=== PATIENT | male | born 1960 | race Caucasian/White ===

== ENCOUNTER 2024-11-28 12:42 | Inpatient (IN) | payer OTHER, SELFPAY ==
[2024-11-28] VITALS (10 sets, daily range): BP systolic 117–149; BP diastolic 72–87; PULSE 65–73; BMI 24.9; BMI 24.4
[2024-11-28 08:33] LABS: Hematocrit 44.9 % (39.0-52.0); Hemoglobin 15.3 g/dL (13.0-18.0); Mean Corp Hgb Conc. 34.1 g/dL (33.0-37.0); Mean Corpuscular Volume 87.9 fL (80.0-94.0); Nucleated Red Blood Cells % 0 % (-); Platelet Count 278 10^3/uL (130-400); Red Cell Dist. Width 12.8 % (11.5-14.5)
--- NOTE | 2024-11-28 08:39 | ED.GENMED ---
History of Present Illness
General
Chief Complaint: Fainting/Passed Out
Time Seen by Provider: 11/28/24 08:39
History of Present Illness
History of Present Illness:
FOCUSED PAST MEDICAL HISTORY
- The patient is a smoker
REVIEW OF OLD RECORDS
- I reviewed records, the patient had a colonoscopy in 2021
Note:
CHIEF COMPLAINT(S)
Chest pain and syncope.
HISTORY OF PRESENT ILLNESS
The patient is a 64-year-old male with a history of chest pain and shortness of breath during the COVID pandemic, approximately five years ago, which was evaluated with a stress test revealing no cardiac abnormalities at that time. Recently, over
the past week and a half, the patient has experienced a resurgence of similar symptoms, notably chest tightness and occasional shortness of breath, though less frequent and less severe compared to five years ago.
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
attempts to rouse him. Upon arrival in the emergency department, initial evaluation including vital signs and an electrocardiogram did not indicate acute cardiac issues. The ER physician planned for cardiac biomarker testing, specifically a troponin
level approximately three hours post-symptom onset, to rule out any acute cardiac events.
The patient reports that physical exertion such as playing golf or climbing a hill does not worsen his symptoms, and he does not associate symptom onset with any specific dietary or activity triggers. He denies current symptoms of chest discomfort.
SOCIAL HISTORY
The patient has a history of smoking, which he resumed after 16 years of cessation. He reports smoking occasionally, primarily in social contexts or during vacations.
REVIEW OF SYSTEMS
- Cardiovascular: Chest tightness.
- Respiratory: Occasional shortness of breath.
- Neurological: Dizziness followed by loss of consciousness.
PHYSICAL EXAM
General: Alert, no acute distress. Athletic build, well appearing.
Skin: Warm, dry. The patient is heavily tattooed
Head: Normocephalic, atraumatic.
Neck: Supple, trachea midline.
Eye Ears, nose, mouth and throat: Oral mucosa moist.
Cardiovascular: Normal peripheral perfusion, No edema. No significant chest wall pain.
Respiratory: Respirations are non-labored. Breath sounds are clear and equal without evidence for COPD/emphysema�he is moving air well.
Gastrointestinal : Abdomen nondistended.
Back: Normal range of motion, Normal alignment.
Musculoskeletal: Normal range of motion, normal strength.
Neurological: Alert and oriented to person, place, time, and situation, No focal neurological deficit observed.
Psychiatric: Cooperative, appropriate mood & affect.
PLAN
- Obtain cardiac biomarkers, specifically troponin, at 10:00 AM.
- Monitor the patient�s vitals and symptoms until testing and results are complete.
- Discuss the case with cardiology for a possible follow-up appointment.
- Consider outpatient stress testing in the near future if cardiac workup is non-revealing.
DIFFERENTIAL DIAGNOSIS
The Differential Diagnosis includes, in no particular order and is not limited to:
1. Cardiac arrhythmia
2. Acute coronary syndrome
3. Aortic stenosis
4. Vasovagal syncope
5. Pulmonary embolism
6. Orthostatic hypotension
7. Gastroesophageal reflux disease
8. Costochondritis
9. Anxiety or panic disorder
10. Chronic obstructive pulmonary disease (COPD) exacerbation
EKG
- Sinus 71, normal axis, no acute ST abnormality, no old to compare
LABS
- CBC is normal, chemistry is unremarkable, troponin went from less than 0.012-0.025. A third troponin has been sent while patient still in the emergency department.
UPDATE
-SUMMARY OF ENCOUNTER
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 Initial cardiac evaluations, including vital signs and an electrocardiogram, did not indicate
acute cardiac issues. Cardiac biomarker testing was conducted to assess for possible cardiac events. An initial troponin level, drawn in the ambulance, was within the normal range but showed a slight upward trend upon further testing in the
emergency department. Although both values remained within the normal range, the upward trend in troponin levels raised concerns of potential cardiac issues.
DISPOSITION
Admit.
ASSESSMENT
The rising trend in troponin levels, despite remaining within the normal range, coupled with the recent syncope episode without an obvious trigger, necessitates further cardiac evaluation and observation.
MANAGEMENT OF THE PATIENTS CARE WAS DISCUSSED WITH
The internal medicine team was consulted to discuss inpatient management, and a patternmaker sample consultation is likely to occur.
PLAN
- Admit the patient for observation and further evaluation.
- Conduct another troponin test by quarter to one to monitor trends.
- Await internal medicine assessment and likely cardiology consultation for further management recommendations.
- Monitor for any changes in the patient�s symptoms or vital signs.
INDEPENDENT REVIEW OF LABS AND INTERPRETATION OF TESTS
My independent review of the troponin levels indicates that while the initial and subsequent levels are within normal range, there is a concerning upward trend.
MEDICAL DECISION MAKING
1. Number and Complexity of Problems Addressed:
Chronic conditions affecting care include the patients history of chest pain with previous normal stress tests, and his history of smoking. Differential diagnosis includes cardiac arrhythmia, acute coronary syndrome, aortic stenosis, vasovagal
syncope, pulmonary embolism, orthostatic hypotension, gastroesophageal reflux disease, costochondritis, anxiety or panic disorder, and chronic obstructive pulmonary disease (COPD) exacerbation.
2. Data:
- Category 1: The initial and subsequent troponin levels were reviewed, showing a concerning upward trend despite being within normal range.
- Category 3: Discussions have occurred with the internal medicine team regarding the upward trend in troponin levels and recent syncope episode, leading to the plan for admission and further evaluation.
3. Risk:
Escalation of care, including admission, was considered due to the complexity and risk of the patients presenting complaints, the upward trend in troponin levels, and recent syncope. Admission for observation and further evaluation is deemed
necessary.
DIAGNOSIS
Potential cardiac etiology for syncope, R94.31 (Abnormal results of cardiac function studies).
Phy Exam
Physical Exam
Physical Exam:
See HPI
Course
Orders/Labs/Results
Orders:
Orders
11/28/24 08:01
EKG [Electrocardiogram (*1)] Urgent
Reason for Study: Syncope
11/28/24 08:02
EKG- Treatment ONCE
11/28/24 08:20
Troponin I Urgent
11/28/24 08:21
Complete Blood Count/With Diff Urgent
Comprehensive Metabolic Panel Urgent
11/28/24 09:46
Troponin I Urgent
11/28/24 10:34
0.9% Sodium Chloride 1000 ml [Nss] 1,000 ml IV BOLUS
11/28/24 10:35
CR Chest - 2 Views Urgent
Comment:
Reason For Exam: cp syncope
11/28/24 12:15
D-Dimer Stat
11/28/24 12:17
Admit/Transfer Patient As Directed
Co-Sign Provider:
Level of Care: Inpatient admission
Assign to:: Telemetry
Physician / Group: Dr. Dacosta
Diagnosis: Chest pain
Reason for Telemetry: Chest Pain syndromes
Date to Stop Telemetry: 11/30/24
Time to Stop Telemetry: 11:00
Reason for Hospitalization: Elevated Troponin
Expected length of stay greater than two midnights?: Yes
ELOS- Estimated Length of Stay in days: 2
I certify the patient meets the requirements for IP care: Yes
11/28/24 12:18
PRN Pain Medication Management As Directed
May give lesser potent ordered pain med per pt: Yes
preference::
Protocol:: Medication orders for pain may be administered in a
manner that supports deferring to patient preference
when the pt is:
- Requesting an ordered lesser potent pain medication.
Least to most potent pain medications are defined
as: acetaminophen < NSAID < tramadol < opioids
(morphine, oxycodone, hydromorphone).
- Requesting a lesser dose of the same medication IF
ORDERED.
- Requesting a less intrusive route of administration
if both routes are prescribed by the provider (PO <
IV).
11/28/24 12:20
Code Status As Directed
Resuscitation Status: Full Code
11/28/24 12:45
Troponin I Urgent
11/30/24 11:00
DC Protocol for Telemetry ONCE
Abnormal Lab Results
11/28/24
08:21
Immature Gran % 0.7 H %
(0-0.5)
Creatinine 0.6 L mg/dL
(0.7-1.3)
Glucose 114 H mg/dl
(70-99)
11/28/24 08:21
11/28/24 08:21
Vital Signs
Initial and Last Documented VS:
Initial Vital Signs
Pulse Resp BP
72 25 124/73
11/28/24 08:01 11/28/24 08:01 11/28/24 08:01
Last Documented Vital Signs
Temp Pulse Resp BP Pulse Ox
36.5 C 64 18 138/85 98
11/28/24 08:03 11/28/24 12:30 11/28/24 12:30 11/28/24 12:00 11/28/24 12:30
*Pulse Oximetry
SaO2: 99
Oxygen Mode of Delivery: Room air
Patient hypoxic: no
*Critical Care Note
Total Time (30-74mins, 75-104mins- exclusive of procedures): Not Applicable
ED Attending Note
-
Portions of this chart may have been created with voice recognition software.� Occasional wrong word or��sound alike� substitutions may have occurred due to the inherent limitations of voice recognition software.
Discharge Plan
Departure
Patient Disposition: Admit
Date of Disposition: 11/28/24
Time of Disposition: 11:27
Presentation/result/management discussed w/ accepting MD/DO: Hospitalist
Discharge Problem:
Syncope and collapse
Interventions
Interventions:
*Risk Screen - Suicide Last Done: 11/28/24 08:08
*General Assessment Last Done: 11/28/24 08:08
*Neglect/Abuse Screening Last Done: 11/28/24 08:08
*ED- Fall Risk Assessment Last Done: 11/28/24 08:08
*ED COVID-19 Vaccine History Last Done: 11/28/24 08:08
ED- Cardiac Assessment Last Done: 11/28/24 08:35
ED- Neurological Assessment Last Done: 11/28/24 08:35
[2024-11-28 08:45] LABS: ALT (SGPT) 28 U/L (0-50); AST (SGOT) 32 U/L (17-59); Albumin 4.5 g/dl (3.5-5.0); Alkaline Phosphatase 91 U/L (38-126); Blood Urea Nitrogen 18 mg/dl (9-20); Calcium 9.5 mg/dl (8.4-10.2); Carbon Dioxide 27 mmol/L (22-30); Chloride 107 mmol/L (98-107); Estimated Creatinine Clearance > 125 ml/min; Glucose 114 mg/dl (70-99); Potassium 4.6 mmol/L (3.5-5.1); Sodium 138 mmol/L (135-145); Total Protein 6.5 g/dl (6.3-8.2); eGFR > 60.00
[2024-11-28 10:27] LABS: Troponin I 0.025 ng/ml
[2024-11-28] MEDS: NSS 1000 IV (10:53)
[2024-11-28 11:12] LABS: Troponin I < 0.012 ng/ml
--- NOTE | 2024-11-28 12:25 | HPS.HSE ---
Family Physician
-
Family Physician: * NONE
Chief Complaint
-
Syncope
History of Present Illness
64M w/no known PMH p/w syncope. 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
shortness of breath, and then he developed severe dizziness, and tunnel vision, and lost consciousness for less than a minute. His friend witnessed the event and shook him to arouse him. He did not have headache, or nausea. He notes that for the
last 1-1/2 weeks he has been having intermittent chest tightness, lasting less than 30 seconds but occurring multiple times throughout the day, both when awake at rest, and waking him up from sleep. These episodes are associated with some shortness
of breath. He denies fevers, chills, sore throat, runny nose, nausea, vomiting, change in appetite, or any sick contacts. He denies taking any medications or supplements. He did have minor dental surgery about 3 weeks ago. He notes that he drove
to [facility] recently. He smokes anywhere from 2 to 3 cigarettes/day to a pack per day. He notes he had similar symptoms 5 years ago and underwent workup with stress test and echo which were negative.
Medical History
Past Medical History
Past Medical History: Reports None
Past Surgical History: Reports Other
Additional Past Surgical History:
Galeano neuroma removal
Dental implant surgery
LASIK
Social History
Tobacco: Smoker (Up to 1 PPD)
Alcohol: Daily (1 to 2 cocktails per day)
Drug: None and Former User
Personal:
Living: With Family
Family History
Family History: Other (Mother with stroke in 70s)
Allergies / Home Medications
Allergies reflects when Allergies were last updated in [facility].
Home Medications with original date entered in [facility]
Allergy/Medication List:
Allergies
Allergy/AdvReac Type Severity Reaction Status Date / Time
No Known Allergies Allergy Unverified 11/28/24 08:18
Home Medications
ibuprofen 200 mg capsule 600 mg PO DAILYPRN PRN mild pain 11/28/24
Review of Systems
-
History Source: Patient
A 12 point ROS was completed and negative except as noted: Yes
Physical Exam
Vital Signs
Vital Signs
Temp Pulse Resp BP Pulse Ox
97.7 F 75 21 136/86 98
11/28/24 08:03 11/28/24 12:08 11/28/24 10:30 11/28/24 10:00 11/28/24 10:30
Physical Exam
General: No Apparent Distress
HEENT: Moist mucous membranes, PERRLA and Neck Nontender; No Neck Mass
Respiratory: Clear; No Wheezes, Rales or Rhonchi
Cardiac: S1/S2 and Regular Rhythm; No Murmur, Rub or Gallop
GI: Soft, Non Tender, Non Distended and Normal Bowel Sounds
Musculoskeletal: No No Edema
Skin: Warm and Dry; No Rash, Ulcers or Lesions
Neuro: Awake and AO x 3
Hematologic/Lymphatic: No Lymphadenopathy
Psych: Calm
Laboratory Results
-
11/28/24 08:21
11/28/24 08:21
Laboratory Results
Total Bilirubin 0.7 mg/dl (0.2-1.3) 11/28/24 08:21
AST 32 U/L (17-59) 11/28/24 08:21
ALT 28 U/L (0-50) 11/28/24 08:21
Alkaline Phosphatase 91 U/L (38-126) 11/28/24 08:21
Troponin I 0.025 ng/ml D 11/28/24 09:46
Data Reviewed
-
Diagnostic Radiology: Report Reviewed by me
Lab Data: Labs Reviewed by me, Discussed with Physician, Discussed with Nurse and Discussed with Patient
Impression/Plan
-
IMPRESSION:
64M with tobacco use presents with chest pain and syncope.
PLAN:
Syncope:
Concern for cardiogenic source given prodromal chest pain and dizziness.
Check orthostatic BP
neon glass blower
Chest pain workup as below
Check TSH
Check D-dimer (patient recently had a road trip)
Chest pain:
Chest pain sounds atypical, as it is not occurring with exertion but also at rest, intermittent episodes for the last week and a half. Also had similar symptoms 5 years ago with negative testing.
CXR is WNL
No S/S of infection
Troponin increased from 0.012-0.025, will check repeat troponin as per chest pain protocol
neon glass blower
Given severity of symptoms and the fact the patient had LOC, admitted for workup and cardiology consult. Dr. Hassan aware. Will defer to cardiology for additional testing.
SL nitro as needed
Check lipid panel and A1c
Tobacco use:
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
DVT PPx:
Lovenox
Full code
--- NOTE | 2024-11-28 12:36 | CON.CAR ---
Addendum entered and electronically signed by Chano Hassan MD 11/28/24 14:32:
I saw and examined the patient.
The SURVEILLANCE MANAGER's note was reviewed and I agree with the note.
64 yr old male presents with an episode of syncope/LOC. Patient has no prior cardiac history he had some intermittent chest pain and shortness of breath about 4- 5 years ago with that evaluation in [place] that was reportedly unremarkable more
recently has had some similar symptoms over the past week random episodes of chest tightness that lasted less than a minute sometimes also feels a little short of breath with it. No exertional symptoms he is able to play golf and walk the golf
course at 5 pounds with no exertional symptoms this includes walking up hills. Today he was in his usual state of health he did have some brief chest tightness this morning. 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 While he was standing
he had some brief dizziness that lasted for about 10 seconds he was able to remain standing and symptoms resolved. He then walked over to one of the golf carts and then apparently slumped over in the seat. No trauma. A coworker saw him and tried
to wake him up and eventually he regained consciousness. He said he was oriented shortly after and had no recurrent symptoms. He was evaluated in the ER. ECG shows sinus rhythm with no acute changes. Initial troponin was normal there was minimal
elevation in the second troponin to 0.025. D-dimer was negative. Exact cause of syncope unclear
- Admit for further evaluation
- Telemetry
- Echocardiogram
- Follow serial troponins
- patient will need an additonal evaluation for CAD.Plan for invasive vs non invasive evaluation based on clinical course andhte results of the diagnostic tests above
- smoking cessation
-lipid profile
Original Note:
Consultation
Consultation Request
Date/Time Consultation Requested: 11/28/24 1178
Date/Time Consultation Performed: 11/28/24 1235
Requesting Provider: Dr. Yañez
Performing Provider: Cinthya ADRIAN for Dr. Hassan
Reason for Consultation: syncope, chest discomfort
Medical History
-
Chief Complaint: syncope
History of Present Illness:
64 y/o male with current smoking and daily ETOH who is here for syncope. Briefly, over the past 1.5 weeks, he has had intermittent chest tightness and shortness of breath. It will last about 1 minute and happens multiple times throughout the day. It
does not seem to correlate with anything including exertion or eating. About 5 years ago, he had similar symptoms, but had a cardiac work-up and it was ultimately felt to be related to panic attacks. It resolved. 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 The dizziness passed, but he still had the chest tightness. He went to go walk over
to a golf cart and sat down and felt dizzy again, then slumped over to the side and was disoriented when other staff were trying to awaken him. He ate and drank as usual this AM. Yesterday, he walked up a hill without CP or SOB. He is in no distress
at the time of my assessment.
Past Medical History
Past Medical History: None
Social History
Tobacco: Smoker (2 cigarettes to a pack per day depending on the day)
Alcohol: Daily (2 drinks per day - bourbon, vodka)
Drug: None
Personal:
Living: With Family
Employment: Employed
Family History
Family History: Unable to Obtain (patient does not know)
Allergies / Home Medications
Allergy/AdvReac Type Severity Reaction Status Date / Time
No Known Allergies Allergy Unverified 11/28/24 08:18
�Medication �Instructions �Recorded �Confirmed �Type
ibuprofen 200 mg capsule 600 mg PO DAILYPRN PRN mild pain 11/28/24 11/28/24 History
Review of Systems
-
History Source: Patient
All other systems: Negative unless noted
Respiratory: Trouble Breathing
Cardiac: Chest Pain and Syncope
Neurological: Dizzy
Physical Exam
Vital Signs
Temp Pulse Resp BP Pulse Ox
97.7 F 75 21 136/86 98
11/28/24 08:03 11/28/24 12:08 11/28/24 10:30 11/28/24 10:00 11/28/24 10:30
Lab Results
11/28/24 08:21
11/28/24 08:21
Troponin I 0.025 ng/ml D 11/28/24 09:46
Physical Exam
General: Well Developed, Well Nourished and No Apparent Distress
HEENT: Normocephalic and Anicteric
Respiratory: Clear and Non Labored Respirations
Cardiac: Regular Rhythm
Musculoskeletal: No Edema
Skin: Warm and Dry
Neuro: AO x 3
Psych: Calm
Impression / Plan
-
Syncope:
-etiology unclear
-obtain echo, follow telemetry
-check orthos
CP/SOB:
-etiology unclear
-follow trops and EKG's
-obtain echo
-depending on echo and trops, consider stress testing in AM
Smoking:
-education on cessation prior to d/c
Data Reviewed
-
EKG: Tracing Personally Visualized and interpreted (NSR)
Radiology: Report Reviewed by me (CXR: No acute cardiopulmonary process.)
Medical Tests (Nuc Med, Echo etc): Other (echo ordered)
Labs: Labs Reviewed by me
--- NOTE | 2024-11-28 13:03 | CM ---
CM reviewed chart and met with pt bedside in ED. Pt lives with his , 2 story home, ramp and 1 [address] front door, first floor half bath, full flight to second floor bedroom and full bath.
Independent in ADLs, personal care and ambulation at baseline, no assistive devices.
Confirms prescription coverage.
No hx VN or SNF
PCP: [facility], unsure which doctor he saw last.
Pharmacy: [facility]
CM will continue to follow for any discharge planning needs.
[2024-11-28 13:16] LABS: D-Dimer < 0.27 ug/mlFEU (0.00-0.50)
[2024-11-28 13:24] LABS: Troponin I 0.039 ng/ml
[2024-11-28 14:39] LABS: Troponin I 0.037 ng/ml
[2024-11-28 17:53] LABS: Troponin I 0.026 ng/ml
[2024-11-28] MEDS: LOVENOX 40 MG SC (18:02)
[2024-11-28 21:10] LABS: Troponin I 0.019 ng/ml
[2024-11-29] VITALS (11 sets, daily range): BP systolic 118–148; BP diastolic 65–90; PULSE 66–76
[2024-11-29 07:35] LABS: Hematocrit 44.0 % (39.0-52.0); Hemoglobin 15.0 g/dL (13.0-18.0); Mean Corp Hgb Conc. 34.1 g/dL (33.0-37.0); Mean Corpuscular Volume 88.9 fL (80.0-94.0); Platelet Count 254 10^3/uL (130-400); Red Cell Dist. Width 12.6 % (11.5-14.5)
[2024-11-29 07:58] LABS: Blood Urea Nitrogen 15 mg/dl (9-20); Calcium 9.3 mg/dl (8.4-10.2); Carbon Dioxide 26 mmol/L (22-30); Chloride 107 mmol/L (98-107); Estimated Creatinine Clearance 117 ml/min; Glucose 92 mg/dl (70-99); HDL Cholesterol 78 mg/dl; LDL Cholesterol, Calculated 62 mg/dl; Potassium 5.2 mmol/L (3.5-5.1); Sodium 137 mmol/L (135-145); Very Low Density Lipoprotein 16 mg/dl (0-30); eGFR > 60.00
--- NOTE | 2024-11-29 08:27 | W.PN.UPDATE ---
Update Note
Progress Note Update
EP Consult dictated
Unexplained syncope in the setting of anginal quality chest pain and abnormal troponin
Troponin elevation is in a pattern consistent with CO. Etiology of troponin elevation is uncertain
Recurrent anginal quality chest pain (30sec-1/2 min) at rest or with activity, multiple episoded starting recently, consider coronary spasm or ACS
Normal tele, ekg, echo
Smoker
No prior syncope ever
DDx
- ACS with syncope from ischemic mediated arrhythmia
- Spasm with syncope from ischemic mediated arrhythmia
- CP of unknown cause with syncope from a vasovagal response
Suggest
- I do not feel a stress test will adequately risk stratify him
- Cardiac cath with possible PCI and revascularization as indicated
- If cath negative then home with amlodipine and arrange for 30 day monitor
- Pt told not to drive an automobile until cleared
- Smoking cessation advised
- I suggest he decrease ETOH significantly
Thank you for the consult
[2024-11-29 08:29] LABS: TSH 2.85 uIU/ml (0.47-4.68)
[2024-11-29] MEDS: ASPIRIN 325 MG PO (08:32)
[2024-11-29 11:50] LABS: Glycohemoglobin (HgbA1c) 5.5 % (4.0-5.6)
--- NOTE | 2024-11-29 13:02 | CM ---
Patient for possible cardiac cath today.
Plan; Home when stable, no needs.
--- NOTE | 2024-11-29 14:28 | W.PN.HOSP.TC ---
Today's Communication/Plan
-
[facility] today
Assessment / Plan
Assessment / Plan
64M with tobacco use presents with chest pain and syncope.
Syncope/Chest pain:
Concern for cardiogenic source given prodromal chest pain and dizziness.
Chest pain sounds atypical, as it is not occurring with exertion but also at rest, intermittent episodes for the last week and a half. Also had similar symptoms 5 years ago with negative testing.
CXR is WNL
No S/S of infection
Troponin peaked at 0.039
electronic device monitor
SL nitro as needed
TSH wnl
negative D-dimer
lipid panel and A1c are WNL
Echo is WNL
Cardiology consulted and plan for [facility] today, see notes.
Tobacco use:
Counseled to quit
DVT PPx:
Lovenox
Anticipated Discharge: 24 - 48 hours
Subjective/Interval History
-
Date of Service: November 29, 2024
Patient notes he had a few episodes of chest tightness, namely overnight at 9 PM. This morning he had no active chest pain.
Objective Data
-
Labs:
Laboratory Results
11/29/24
06:42
WBC 7.1
Hgb 15.0
Hct 44.0
Plt Count 254
Sodium 137
Potassium 5.2 H
Chloride 107
Carbon Dioxide 26
BUN 15
Creatinine 0.7
Glucose 92
Calcium 9.3
Vital Signs:
Vital Signs
Temp Pulse Resp BP Pulse Ox
98.5 F 64 16 142/74 96
11/29/24 11:24 11/29/24 11:24 11/29/24 11:24 11/29/24 11:24 11/29/24 11:24
Review of Systems
-
All other systems: Reviewed and negative
Physical Exam
-
General: No Apparent Distress
HEENT: Moist Mucous Membranes, Anicteric and PERRLA
Respiratory: Clear to Auscultation; Negative Wheezes, Rales or Rhonchi
Cardiac: Regular Rhythm and S1/S2; Negative Murmur, Rub or Gallop
GI: Soft, Nontender, Nondistended and Normal Bowel Sounds
Musculoskeletal: No Edema
Skin: Warm and Dry; Negative Rash, Ulcers or Lesions
Neuro: Awake and AO x 3
Hematologic / Lymphatic: No Lymphadenopathy
Psych: Calm
Data Reviewed
-
Medical Tests (Nuc Med, Echo etc): Report Reviewed by me and Discussed with Physician
Labs: Labs Reviewed by me, Discussed with Physician and Discussed with Patient
[2024-11-29] MEDS: LOVENOX 40 MG SC (17:02)
--- NOTE | 2024-11-29 20:00 | ITS.CL.PN ---
Cardiac Nurse - Procedure Note
Procedure
Procedure Note:
CARDIAC CATHETERIZATION REPORT
Date of Procedure: 11/29/2024
Referring: Dr. William Coronado MD
Indication: mildly elevated troponin, concern for VT/ischemia mediated syncope
PROCEDURE(S)
1. left heart catheterization
2. coronary angiography
ACCESS: 6F right radial artery (closure: radial band)
CATHETERS
1. 6F JR4
2. 6F JL3.5
MODERATE SEDATION: 25 minutes of moderate sedation was utilized. An independent medical physics professor was present to assist with and help manage the patient's level of consciousness and physiologic status.
HEMODYNAMIC DATA
LV 157/11 (EDP 20) mmHg
AO 145/84 (mean 111) mmHg
CORONARY ANGIOGRAPHY
Dominance: right
LM: large, normal
LAD: large vessel giving rise to a small D1 and small D2 before becoming a diminutive vessel at the apex. There are mild luminal irregularities only.
LCx: Large vessel giving rise to a moderate caliber OM1, several small OM branches, a moderate caliber LPL 1, and small LPL 2. There are trivial luminal irregularities only.
RCA: moderate caliber vessel giving rise to a small RPDA and several small RPL branches. There is a smooth 40% stenosis in the proximal vessel and otherwise mild luminal irregularities only.
RADIATION: dose 192 mGy; DAP 15 Gy*cm2; fluoroscopy time 2.3 min
CONCLUSIONS
1. mildly elevated LV filling pressure and no aortic stenosis
2. nonobstructive coronary artery disease and right dominant system
RECOMMENDATIONS
1. primary prevention of CAD
2. workup for etiology of syncope not related to obstructive coronary artery disease
Copy to: Dr. William Coronado MD (school bus driver/teacher assistant); Dr. Alejandro Vivar MD (PCP)
Signed: Darin Floyd MD, PhD
[2024-11-30] VITALS: BP 120/59
[2024-11-30 02:30] VITALS: BP 124/72
--- NOTE | 2024-11-30 03:45 | DOWNTIME ---
There was a mYwindow [employer] Downtime on 11/30/2024 from 0100 to 11/30/2024 at 0215. Downtime documentation of patient's care, including medication administrations, has been reconciled in the electronic record per guidelines. Refer to the
patient's paper chart under the miscellaneous tab to see printed paper medication records and downtime forms.
[2024-11-30 07:50] VITALS: BP 124/84
[2024-11-30 08:22] LABS: Hematocrit 44.0 % (39.0-52.0); Hemoglobin 15.1 g/dL (13.0-18.0); Mean Corp Hgb Conc. 34.3 g/dL (33.0-37.0); Mean Corpuscular Volume 87.6 fL (80.0-94.0); Platelet Count 255 10^3/uL (130-400); Red Cell Dist. Width 12.7 % (11.5-14.5)
--- NOTE | 2024-11-30 08:56 | W.PN.CD ---
Today's Communication / Plan
-
Add ASA/statin/amlodipine
30 day monitor
Smoking cessation
No driving
F/u Dr. Hassan in our office 01/26/2025 at 2:20
Impression / Plan
-
Syncope:
-etiology unclear
- Will arrange 30 day event recorder
CP/SOB:
Etiology uncertain
- Will try treating for vasospasm, empiric, not confrimed
Mild CAD
- Add ASA and statin
- Goal LDL < 55
Smoking:
-education on cessation prior to d/c
Physical Exam
Vital Signs/Labs
Vital Signs
Temp Pulse Resp BP Pulse Ox
98.6 F 65 16 124/84 96
11/30/24 07:50 11/30/24 07:50 11/30/24 07:50 11/30/24 07:50 11/30/24 07:50
11/29/24 11/30/24 12/01/24
06:59 06:59 06:59
Actual Weight 79.379 kg
11/30/24 08:05
Triglycerides 84 mg/dl (10-149) 11/29/24 06:42
LDL Cholesterol, Calc 62 mg/dl 11/29/24 06:42
VLDL Cholesterol, Calc 16 mg/dl (0-30) 11/29/24 06:42
HDL Cholesterol 78 mg/dl 11/29/24 06:42
TSH 2.85 uIU/ml (0.47-4.68) 11/29/24 06:42
LAB Results
11/28/24 11/28/24 11/28/24
08:20 09:46 12:45
Troponin I < 0.012 0.025 D 0.039 H* D
11/28/24 11/28/24 11/28/24
14:06 17:18 20:30
Troponin I 0.037 H* 0.026 D 0.019 D
Physical Exam
Constitutional: No acute distress
EENT: Anicteric
Cardiovascular: Rhythm & rate is regular and Pedal edema is absent
Respiratory: Respiratory effort normal and Lungs clear to auscul.
GI: Soft and Distention absent
Neuro/Psych: AO x 3
Data Reviewed
-
Date of Service: November 30, 2024
[2024-11-30 09:05] LABS: Blood Urea Nitrogen 19 mg/dl (9-20); Calcium 9.2 mg/dl (8.4-10.2); Carbon Dioxide 26 mmol/L (22-30); Chloride 105 mmol/L (98-107); Estimated Creatinine Clearance 117 ml/min; Glucose 100 mg/dl (70-99); Potassium 4.8 mmol/L (3.5-5.1); Sodium 137 mmol/L (135-145); eGFR > 60.00
[2024-11-30] MEDS: LOW STRENGTH ASPIRIN 81 MG PO (09:43)
[2024-11-30] MEDS: NORVASC 2.5 MG PO (09:43)
--- NOTE | 2024-11-30 10:55 | W.DCSUMMARY ---
Discharge Summary
Discharge Data
Date of Admission: 11/28/24
Date of Discharge: 11/30/24
Total time spent discharging patient (in min): 35
-
Pending Results: No
Hospital Course
Attending physician on day of discharge:
Carolina Dacosta MD
Diagnosis:
Syncope, chest pain
Consultations:
Cardiology
Electrophysiology
Procedures:
Left heart cath
Hospital course:
64M with history of smoking presents with syncopal episode preceded by 1.5 weeks of intermittent chest tightness. EKG was normal sinus rhythm. Troponin was peaked at 0.039. Echocardiogram was WNL. VSS. lipid panel/A1c were WNL. There were no
telemetry events. Cardiology was consulted and LHC was performed as above. He was started on aspirin, statin, amlodipine. He will be set up with outpatient 30-day monitor, as well as follow-up with cardiology. He was advised not to drive until
cleared by cardiology.
Physical exam on discharge:
Gen: NAD
HEENT: PERRLA, EOMI, MMM, neck supple
Cards: RRR, no M/G/R
Resp: Lungs CTAB, no W/R/R
GI: soft, NT/ND/NABS
MSK: No edema
Skin: warm and dry, no rash, ulcer or lesions
Heme: No LAD
Psych: Calm
Neuro: AAOx3
Discharge disposition:
Home
Discharge Plan
-
Patient Disposition: Home (Routine Discharge)
Discharge Diagnosis/Procedures: Syncope, chest pain
Diet: Regular
Activity: No restrictions
Additional Activity: For 2-3 days, for the arm the catheter was in:
Do not lift anything heavier than 10 pounds (4.5 kilograms). (This is a little more than a gallon of milk).
Do not do any heavy pushing, pulling, or twisting.
Avoid sexual activity for 2 to 5 days. Ask your heart doctor when it will be OK to start again.
You should be able to return to work in 2 to 3 days if you do not do heavy work.
Do not take a bath or swim for the first week. You may take showers, but make sure the area where the catheter was inserted does not get wet for the first 24 to 48 hours.
Driving Restrictions: until cleared by the [facility] dock
Bathing Restrictions: OK to Shower
Wound Care: The morning after your procedure, you may take the dressing off.
After the bandage is removed, cover the area with a small adhesive bandage. It is normal for the catheter insertion site to be black and blue for a couple of days. The site may also be slightly swollen and pink, and there may be a small lump (about
the size of a quarter) at the site.
Do not rub the catheter insertion site.
Keep the area clean and dry when you are not showering.
Do not use creams, lotions or ointment on the wound site.
Activity Restrictions/Additional Instructions:
You were seen for an episode of loss of consciousness, called syncope, as well as chest pains. Your EKG was normal, but your blood work showed an elevated troponin, which is a enzyme produced by your heart the event of heart damage. An ultrasound
of the heart called an echocardiogram which was normal. You were seen by the [facility] dock, who performed a left heart catheterization, but they did not find any blocked vessels. Is possible that you are experiencing coronary spasms. Being treated
for primary prevention of heart disease. You have been placed on aspirin, atorvastatin, and amlodipine. Amlodipine is a blood pressure medication that can help treat coronary spasms. Please check your blood pressures at home to make sure they do
not go low on this amlodipine medication. The header dock is arranging for you to have a 30-day heart monitor and outpatient follow up. Because you had syncope, you may not drive until you are cleared to do so by the header dock.
Instructions: Syncope (fainting), Checking your blood pressure at home, Ambulatory heart monitoring, Cardiac catheterization (DC), Quitting smoking for adults
Referrals:
Alejandro Vivar DO [Active, Internal Medicine]
Chano Hassan MD [Active, Cardiology] - 01/26/25 2:20 pm
Prescriptions:
New
aspirin 81 mg Tablet,Chewable
81 mg PO DAILY Qty: 30 0RF
rosuvastatin 20 mg Tablet
20 mg PO QPM Qty: 30 0RF
amlodipine 2.5 mg Tablet
2.5 mg PO DAILY Qty: 30 0RF
Discontinued
ibuprofen 200 mg Capsule
600 mg PO DAILYPRN PRN (Reason: mild pain)
Discharge Orders:
Discharge Patient (As Directed); Ordered 11/30/24
Ordered By: Carolina Dacosta
Discharge Date and Time
Print Language: GREEK
--- NOTE | 2024-11-30 11:05 | CM ---
Home today, no needs.
Plan; Home no needs.
[2024-11-30 11:18] VITALS: BP 143/85
== END 2024-11-30 12:43 | disposition home or self-care (01) | DRG 287 ==
LOC: 4 WEST ACU 12:42
PROVIDERS: Student in an Organized Health Care Education/Training Program; ADMITTING PHYSICIAN Internal Medicine; CONSULT PHYSICIAN Internal Medicine Cardiovascular Disease; EMERGENCY PHYSICIAN Emergency Medicine
PROC: B2111ZZ Fluoroscopy of Multiple Coronary Arteries using Low Osmolar Contrast (ICD-10-PCS; 2024-11-29)
PROC: 4A023N7 Measurement of Cardiac Sampling and Pressure, Left Heart, Percutaneous Approach (ICD-10-PCS; 2024-11-29)
DX: I24.9 Acute ischemic heart disease, unspecified (principal); Z82.3 Family history of stroke; F17.210 Nicotine dependence, cigarettes, uncomplicated; F41.0 Panic disorder [episodic paroxysmal anxiety]
CPT/HCPCS: 71046; 80048; 80053; 80061; 83036; 84443; 84484; 85025; 85027; 85379; 93005; 93306; 93458; 96360; 99152; 99153; 99285; 99406; C1769; C1894; Q9967

== ENCOUNTER 2024-12-20 14:20 | Inpatient (IN) | payer OTHER, SELFPAY ==
[2024-12-20] VITALS (13 sets, daily range): BP systolic 121–151; BP diastolic 63–106; BMI 25.2
--- NOTE | 2024-12-20 12:07 | ED.GENMED ---
History of Present Illness
<KAYLAH Novoa - Last Filed: 12/20/24 16:49>
General
Chief Complaint: Chest Pain
Source: patient
Exam Limitations: none
Time Seen by Provider: 12/20/24 12:01
Nursing documentation reviewed up to this point in time: agreed with
History of Present Illness
History of Present Illness:
Patient is a 64-year-old male presents to the ER for evaluation patient was recently hospitalized after an episode of syncope. At that time he had a normal echo and chronic catheterization. He was sent home on a rhythm*monitor and was sent in by
cardiology for having runs of nonsustained V. tach some of which appears polymorphic. 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 Patient is currently asymptomatic.
He denies any associated shortness of breath during episode. Patient reports episodes happen both at rest and with exertion/activity.
Phy Exam
<KAYLAH Novoa - Last Filed: 12/20/24 16:49>
General Physical Exam
General Presentation: no apparent distress
General age: appears stated age
General Skin: warm and dry
General Habitus: normal
General Mental: alert
Cardiovascular Exam
Cardiovascular Exam: regular rate/rhythm, no murmur and normal peripheral pulses
Pulmonary Exam
Pulmonary Exam: lungs clear and no respiratory distress
Neurological Exam
Neurological Exam: alert and oriented x3
Musculoskeletal Exam
Musculoskeletal Exam: full ROM
Skin Exam
Skin Exam: normal color and warm/dry
Psychiatric Exam
Psychiatric Exam: normal mood/affect
Scores
<KAYLAH Novoa - Last Filed: 12/20/24 16:49>
Heart Score for Chest Pain Patients
STEMI patient?: Not applicable
Course
<KAYLAH Novoa - Last Filed: 12/20/24 16:49>
Orders/Labs/Results
Orders:
Orders
12/20/24 11:45
EKG [Electrocardiogram (*1)] Urgent
Reason for Study: Chest Pain
EKG- Treatment ONCE
12/20/24 12:08
Cardiac Monitoring- Treatment ONCE
IV Insert/Care/Rem.- Treatment PRN
12/20/24 12:23
Add On- LAB Urgent
Tests Added?: Mag
12/20/24 12:28
Complete Blood Count/With Diff Urgent
Comprehensive Metabolic Panel Urgent
Magnesium Urgent
Comment: ADD ON
12/20/24 13:11
Admit/Transfer Patient As Directed
Co-Sign Provider:
Level of Care: Inpatient admission
Assign to:: IVU
Physician / Group: CBC
Diagnosis: Ventricular tachycardia
Reason for Hospitalization: Polymorphic ventricular tachycardia
Expected length of stay greater than two midnights?: Yes
ELOS- Estimated Length of Stay in days: 3
I certify the patient meets the requirements for IP care: Yes
PRN Pain Medication Management As Directed
May give lesser potent ordered pain med per pt: Yes
preference::
Protocol:: Medication orders for pain may be administered in a
manner that supports deferring to patient preference
when the pt is:
- Requesting an ordered lesser potent pain medication.
Least to most potent pain medications are defined
as: acetaminophen < NSAID < tramadol < opioids
(morphine, oxycodone, hydromorphone).
- Requesting a lesser dose of the same medication IF
ORDERED.
- Requesting a less intrusive route of administration
if both routes are prescribed by the provider (PO <
IV).
12/20/24 13:12
Code Status As Directed
Resuscitation Status: Full Code
12/20/24 13:45
Cardiac MRI Morph & Funct Wo/W MRI [MR Card Mri Morph & Funct Wo/w] Urgent
Comment:
Reason For Exam: PMVT
Recent pill cam endoscopy?: No
12/20/24 15:28
Activity As Directed
Activity Level: As Tolerated
Compression Sleeves [Pneumatic Compression Sleeves] As Directed
Type: Knee high
INT (Intravenous Needle Therapy) As Directed
Intake/ Output As Directed
Frequency: Per unit guidelines
Vital Signs As Directed
Frequency: Per unit guidelines
DX Deep Vein Thrombosis Video Routine
12/20/24 18:00
Rosuvastatin Calcium [Crestor] 20 mg PO QPM
12/21/24 06:00
EKG [Electrocardiogram (*1)] IN AM
Reason for Study: Abnormal EKG
BMP [Basic Metabolic Panel] IN AM
12/21/24 08:00
Aspirin Chewable [Low Strength Aspirin] 81 mg PO DAILY
12/22/24 06:00
BMP [Basic Metabolic Panel] IN AM
12/23/24 06:00
BMP [Basic Metabolic Panel] IN AM
Abnormal Lab Results
12/20/24
12:28
RBC 4.63 L 10^6/uL
(4.70-6.10)
Total Protein 6.2 L g/dl
(6.3-8.2)
12/20/24 12:28
12/20/24 12:28
Vital Signs
Initial and Last Documented VS:
Initial Vital Signs
Temp Pulse Resp BP Pulse Ox
98.0 F 76 20 151/90 97
12/20/24 11:51 12/20/24 11:51 12/20/24 11:51 12/20/24 11:51 12/20/24 11:51
Last Documented Vital Signs
Temp Pulse Resp BP Pulse Ox
97.7 F 64 18 138/88 97
12/20/24 15:37 12/20/24 16:15 12/20/24 15:37 12/20/24 15:34 12/20/24 15:37
Culinary Assistant consulted with Physician
Culinary Assistant consulted with physician?: Yes
Name of Physician Consulted: Miladys
<Teressa Hook, DO - Last Filed: 12/20/24 14:14>
Orders/Labs/Results
Orders:
Orders
12/20/24 11:45
EKG [Electrocardiogram (*1)] Urgent
Reason for Study: Chest Pain
EKG- Treatment ONCE
12/20/24 12:08
Cardiac Monitoring- Treatment ONCE
IV Insert/Care/Rem.- Treatment PRN
12/20/24 12:23
Add On- LAB Urgent
Tests Added?: Mag
12/20/24 12:28
Complete Blood Count/With Diff Urgent
Comprehensive Metabolic Panel Urgent
Magnesium Urgent
Comment: ADD ON
12/20/24 13:11
Admit/Transfer Patient As Directed
Co-Sign Provider:
Level of Care: Inpatient admission
Assign to:: IVU
Physician / Group: CBC
Diagnosis: Ventricular tachycardia
Reason for Hospitalization: Polymorphic ventricular tachycardia
Expected length of stay greater than two midnights?: Yes
ELOS- Estimated Length of Stay in days: 3
I certify the patient meets the requirements for IP care: Yes
PRN Pain Medication Management As Directed
May give lesser potent ordered pain med per pt: Yes
preference::
Protocol:: Medication orders for pain may be administered in a
manner that supports deferring to patient preference
when the pt is:
- Requesting an ordered lesser potent pain medication.
Least to most potent pain medications are defined
as: acetaminophen < NSAID < tramadol < opioids
(morphine, oxycodone, hydromorphone).
- Requesting a lesser dose of the same medication IF
ORDERED.
- Requesting a less intrusive route of administration
if both routes are prescribed by the provider (PO <
IV).
12/20/24 13:12
Code Status As Directed
Resuscitation Status: Full Code
12/20/24 13:45
Cardiac MRI Morph & Funct Wo/W MRI [MR Card Mri Morph & Funct Wo/w] Urgent
Comment:
Reason For Exam: PMVT
Recent pill cam endoscopy?: No
12/20/24 15:28
Activity As Directed
Activity Level: As Tolerated
Compression Sleeves [Pneumatic Compression Sleeves] As Directed
Type: Knee high
INT (Intravenous Needle Therapy) As Directed
Intake/ Output As Directed
Frequency: Per unit guidelines
Vital Signs As Directed
Frequency: Per unit guidelines
DX Deep Vein Thrombosis Video Routine
12/20/24 18:00
Rosuvastatin Calcium [Crestor] 20 mg PO QPM
12/21/24 06:00
EKG [Electrocardiogram (*1)] IN AM
Reason for Study: Abnormal EKG
BMP [Basic Metabolic Panel] IN AM
12/21/24 08:00
Aspirin Chewable [Low Strength Aspirin] 81 mg PO DAILY
12/22/24 06:00
BMP [Basic Metabolic Panel] IN AM
12/23/24 06:00
BMP [Basic Metabolic Panel] IN AM
Abnormal Lab Results
12/20/24
12:28
RBC 4.63 L 10^6/uL
(4.70-6.10)
Total Protein 6.2 L g/dl
(6.3-8.2)
12/20/24 12:28
12/20/24 12:28
Vital Signs
Initial and Last Documented VS:
Initial Vital Signs
Temp Pulse Resp BP Pulse Ox
98.0 F 76 20 151/90 97
12/20/24 11:51 12/20/24 11:51 12/20/24 11:51 12/20/24 11:51 12/20/24 11:51
Last Documented Vital Signs
Temp Pulse Resp BP Pulse Ox
97.7 F 64 18 138/88 97
12/20/24 15:37 12/20/24 16:15 12/20/24 15:37 12/20/24 15:34 12/20/24 15:37
<KAYLAH Novoa - Last Filed: 12/20/24 16:49>
MDM/Problems Addressed
Differential Diagnosis Includes:
Not limited to arrhythmia
MDM/Problems Addressed:
As documented patient is a 64-year-old male that was called to the ER for reevaluation. Patient was having runs of nonsustained V. tach some of which was polymorphic. Patient was describing chest tightness during his episodes. Patient was sent by
cardiology who admitted patient for further evaluation. Patient with normal electrolytes asymptomatic here.
<KAYLAH Novoa - Last Filed: 12/20/24 16:49>
*Pulse Oximetry
SaO2: 97
Oxygen Mode of Delivery: Room air
Patient hypoxic: no
*EKG
Interpreted by ED Provider?: Yes
Interpretation: normal
Heart Rate: 77
Rate: normal
Rhythm: sinus
Ischemia: non-specific ST changes
*Critical Care Note
Total Time (30-74mins, 75-104mins- exclusive of procedures): Not Applicable
Data Reviewed
Review of Other/Old Records Reveals: Labs, Radiology Studies and Discharge Summary
<KAYLAH Novoa - Last Filed: 12/20/24 16:49>
Patient Management
Discussion with other providers: Building Construction Inspector (Cardiology Dr. Alfaro and Dr. Tyson )
ED Attending Note
<KAYLAH Novoa - Last Filed: 12/20/24 16:49>
-
Portions of this chart may have been created with voice recognition software.� Occasional wrong word or��sound alike� substitutions may have occurred due to the inherent limitations of voice recognition software.
<Teressa Hook DO - Last Filed: 12/20/24 14:14>
ED Attending Note
Patient seen and examined by attending physician: Yes
I performed the substantive portion of visit, reviewed & personally made and approve the management plan that is documented in note by myself or EFE.: Yes
I performed a history and physical exam of patient and discussed management with resident, I reviewed resident's note and agree with documented findings and plan of care.: Yes
ED Attending Note:
64-year-old male with with history of high blood pressure and high cholesterol presenting to the emergency department for known arrhythmia. Patient sent in by cardiology, has a rhythm star monitor in place and is having runs of nonsustained V.
tach, some of which appear polymorphic. Patient notes for past several weeks he has been having some chest tightness. Was seen and evaluated in the hospital on 11/28 after syncopal episode, had echo and cath obtained, unremarkable, discharged home.
Currently asymptomatic. Vital signs significant for mild hypertension.
On exam, patient resting comfortably with unremarkable cardiac and pulmonary exam. EKG nonischemic, no arrhythmia. Cardiology made aware of patient's arrival with plan for admission for cardiac monitoring, cardiac MRI, possible ICD placement
Discharge Plan
Departure
Patient Disposition: Admit
Presentation/result/management discussed w/ accepting /DO: parvez
Patient with high blood pressure during this ER visit?: Yes
Condition: Fair
Covid-19: Not Applicable
Discharge Problem:
Ventricular tachycardia, Chest pain
Interventions
Interventions:
*Risk Screen - Suicide Last Done: 12/20/24 11:51
*General Assessment Last Done: 12/20/24 15:39
*Neglect/Abuse Screening Last Done: 12/20/24 11:51
*ED COVID-19 Vaccine History Last Done: 12/20/24 12:50
*ED Influenza Vaccine History Last Done: 12/20/24 12:50
*Nursing Disposition Last Done: 12/20/24 15:39
ED- Cardiac Assessment Last Done: 12/20/24 13:29
Discharge Date and Time
Discharge Date/Time: 12/20/24 15:40
[2024-12-20 12:41] LABS: Hematocrit 40.2 % (39.0-52.0); Hemoglobin 13.7 g/dL (13.0-18.0); Mean Corp Hgb Conc. 34.1 g/dL (33.0-37.0); Mean Corpuscular Volume 86.8 fL (80.0-94.0); Nucleated Red Blood Cells % 0 % (-); Platelet Count 258 10^3/uL (130-400); Red Cell Dist. Width 12.3 % (11.5-14.5)
--- NOTE | 2024-12-20 13:00 | HPS.HSE ---
Addendum entered and electronically signed by Felicia Judge MD 12/20/24 16:25:
I saw and evaluated the patient, and I provided the substantive portion of the medical decision making.
I reviewed and agree with the note by Nena Parker and it accurately reflects our care.
I personally performed the medical decision making of the this encounter and my assessment and plan is below:
64-year-old gentleman with a past medical history of nonobstructive CAD, hypertension hypercholesterolemia and former smoker who was recently evaluated by my partner Dr. Hassan and rigger apprentice Dr. Coronado for syncope. He underwent recent
catheterization without obstructive CAD and an echocardiogram on 11/28/2024 that was normal. He was wearing a 30-day cardiac cath tech and further evaluation which showed multiple episodes of VT with likely polymorphic VT seen. He states at times he
has felt near syncope couple with the monitor in place. Currently he is feeling fine and presented to the ED after Dr. Hassan instructed him to do so.
On exam he is alert and oriented x 3 in no apparent distress. He has a regular rate and rhythm with a normal S1-S2 no murmur rubs or gallops were appreciated. Lungs were clear to auscultation no lower extremity edema. EKG shows normal sinus
rhythm with a normal QTc.
Assessments:
VT: At times appears polymorphic
- Update lytes
- Formal EP consult tomorrow, discussed the case with them. Recommended starting IV Amio will load.
- Will arrange for cardiac MRI
- Will likely need ICD prior to discharge.
-
CAD: Nonobstructive chest pain-free continue aspirin and statin
Hyperlipidemia: Continue statin
Hypertension: monitor off agent
Original Note:
Family Physician
-
Family Physician: KAYLAH Sosa
Primary Pole Lift Operator: Chano Hassan MD
Chief Complaint
-
Abnormal outpatient monitoring
History of Present Illness
Jason Donahue is a 64-year-old male (known to Dr. Hassan, his primary tool lathe operator), with nonobstructive CAD, hypertension, hypercholesterolemia, and former smoker presented with abnormal outpatient cardiac monitoring. He had a recent admission
with syncope. The etiology was unclear. He had a cardiac catheterization which demonstrated nonobstructive coronary artery disease. The plan was for a 30-day cardiac cath tech with outpatient cardiac follow-up. clinical research monitor with PMV BARBI.
Longest episode 15 beats, fastest episode at 270 bpm. He was referred to the emergency department for evaluation and treatment.
Medical History
Past Medical History
Past Medical History: Reports CAD (Nonobstructive), HTN and Hypercholesterolemia
Past Surgical History: Reports Orthopedic and Tonsilectomy
Social History
Tobacco: Smoker
Alcohol: Daily
Drug: None
Personal:
Living: With Family
Employment: Employed ([employer])
Family History
Family History: Not pertinent
Allergies / Home Medications
Allergies reflects when Allergies were last updated in [employer].
Home Medications with original date entered in [employer]
Allergy/Medication List:
Denies food and drug allergies.
Home medications:
Amlodipine 2.5 mg daily
Aspirin 81 mg p.o. daily
Rosuvastatin 20 mg p.o. daily
Review of Systems
-
History Source: Patient
A 12 point ROS was completed and negative except as noted: Yes
Constitutional: Reports No Symptoms
EENT: Reports No Symptoms
Respiratory: Reports No Symptoms
Cardiac: Reports See HPI
Abdomen/GI: Reports No Symptoms
: Reports No Symptoms
Musculoskeletal: Reports No Symptoms
Skin: Reports No Symptoms
Neurological: Reports No Symptoms
Endocrine: Reports No Symptoms
Hematologic/Lymphatic: Reports No Symptoms
Psych: Reports No Symptoms
Physical Exam
Vital Signs
Vital Signs
Temp Pulse Resp BP Pulse Ox
98.0 F 76 20 151/90 97
12/20/24 11:51 12/20/24 11:51 12/20/24 11:51 12/20/24 11:51 12/20/24 12:08
Physical Exam
General: Well Developed, Well Nourished, No Apparent Distress and Comfortable
HEENT: NormoCephalic and Anicteric
Respiratory: Clear and Non Labored Respirations
Cardiac: S1/S2 and Regular Rhythm; No Peripheral Edema
Breast: Deferred by me
GI: Soft, Non Tender, Non Distended and Normal Bowel Sounds
Rectal: Deferred by Provider
Genito-urinary: Deferred by me
Musculoskeletal: No Clubbing and No Cyanosis
Skin: Warm and Dry
Neuro: AO x 3
Hematologic/Lymphatic: No Lymphadenopathy
Psych: Calm
Laboratory Results
-
12/20/24 12:28
Data Reviewed
-
Diagnostic Radiology: Report Reviewed by me
Medical Tests (Nuc Med, Echo, EKG etc): Report Reviewed by me
Lab Data: Labs Reviewed by me
Old Records: Reviewed
Impression/Plan
-
I/P: 64M with nonobstructive CAD, hypertension, hypercholesterolemia, and former smoker presented with abnormal outpatient cardiac monitoring. Cardiac monitoring showed PM VT. He had a recent admission with unexplained syncope.
Primary tool lathe operator: Dr. Hassan
PMVT
- Recent event with unexplained syncope prompting cardiac monitoring, longest episode 15 beats, fastest episode at 270 bpm
- Episodes correlate with symptoms of chest tightness
- No significant electrolyte abnormality, TSH within normal limits during admission with syncope
- Cardiac MRI, hopefully this can be done today
- Plan for dual-chamber ICD and amiodarone pending cardiac MRI results
CAD
- Stable without chest pain
- Smooth 40% stenosis in mild luminal irregularities
- Continue aspirin and rosuvastatin
Hypertension, stop amlodipine to allow for beta-sushma
Hypercholesterolemia, on rosuvastatin 20 mg
Current smoker, full cessation recommended
Daily EtOH
[2024-12-20 13:04] LABS: ALT (SGPT) 33 U/L (0-50); AST (SGOT) 29 U/L (17-59); Albumin 4.2 g/dl (3.5-5.0); Alkaline Phosphatase 74 U/L (38-126); Blood Urea Nitrogen 17 mg/dl (9-20); Calcium 9.2 mg/dl (8.4-10.2); Carbon Dioxide 25 mmol/L (22-30); Chloride 106 mmol/L (98-107); Glucose 92 mg/dl (70-99); Magnesium 2.0 mg/dl (1.6-2.3); Potassium 4.4 mmol/L (3.5-5.1); Sodium 135 mmol/L (135-145); Total Protein 6.2 g/dl (6.3-8.2); eGFR > 60.00
[2024-12-20] MEDS: CORDARONE 103 MG IV (16:01)
[2024-12-20] MEDS: CORDARONE 518 MG IV (16:24)
--- NOTE | 2024-12-20 16:51 | PTCARENOTE ---
Rec'd Pt from ED, A,A+Ox3, denies pain. Pt in SR, rate of 60's. INT R AC, Amiodarone bolus and drip ordered. New Iv site started in R forearm. Pt given Amio bolus and drip began at 1630. VSS
[2024-12-20] MEDS: CRESTOR 20 MG PO (17:34)
[2024-12-21] VITALS (12 sets, daily range): BP systolic 106–131; BP diastolic 65–93
--- NOTE | 2024-12-21 00:21 | PTCARENOTE ---
Tele remains NSR, HR in the 60's. Patient denies any pain or discomfort. He does c/o intermittent SOB at times, but cant recall if he notices it with movement vs at rest. Pulse ox 98-99% RA. Lungs clear throughout. IV Amio gtt infusing per protocol,
see worklist for further info. Peripheral IV WNL. Reviewed plan of care w/ patient. Call monsalve in reach.
--- NOTE | 2024-12-21 02:47 | PTCARENOTE ---
Patient laying in bed, HR in the 50's at rest. IV amio gtt infusing at 0.5 mg/min. Yvette Valenzuela CT PA aware of Sinus ann and amio protocol. PA ok to continue gtt.
[2024-12-21] MEDS: TYLENOL 650 MG PO ×2 (05:29→19:31)
[2024-12-21 05:34] LABS: Blood Urea Nitrogen 16 mg/dl (9-20); Calcium 9.1 mg/dl (8.4-10.2); Carbon Dioxide 25 mmol/L (22-30); Chloride 107 mmol/L (98-107); Estimated Creatinine Clearance 109 ml/min; Glucose 93 mg/dl (70-99); Potassium 4.5 mmol/L (3.5-5.1); Sodium 136 mmol/L (135-145); eGFR > 60.00
[2024-12-21 05:43] LABS: Troponin I < 0.012 ng/ml
--- NOTE | 2024-12-21 05:48 | PTCARENOTE ---
Morning vitals and blood draws obtained this am. Patient reports discomfort at right forearm IV site where amio gtt is infusing. Lateral to the IV site its slightly swollen and sore to touch. VAT notified and at bedside. IV removed by this RN. Right
arm placed on pillow and ice pack provided to site.
VAT placed new IV site in left forearm, amio gtt infusing. Patient educated to monitor for any signs and symptoms of discomfort at new IV site and to report to staff.
Patient also c/o having on and off episodes of chest tightness throughout the night. Patient AAOx4 and never reported any of these episodes to staff until this AM. He reports the tightness is 'mild' and the discomfort 'lingers'. Rated it 2/10. He
reports he experiences SOB intermittently as well. Sating 98% RA. Lungs clear throughout. Applied 2L oxygen for comfort, patient sating 99%. Yvette NATH made aware and at bedside. Morning ekg shows Sinus ann. Trop obtained w/ result of
0.012. PRN Tylenol administered at 05:29. Instructed patient to ring for nursing staff when having chest discomfort. Call monsalve in reach.
--- NOTE | 2024-12-21 06:11 | VATNOTE ---
Called by PCN to assess L arm IV site for swelling and pain. Pt had Amio drip infusing Line d/c and PCN put Ice to phlebitc area per protocol will monitor. New line placed L arm
[2024-12-21] MEDS: LOW STRENGTH ASPIRIN 81 MG PO (08:01)
--- NOTE | 2024-12-21 10:33 | W.PN.UPDATE ---
Update Note
Progress Note Update
EP Consult dictated
Imp
High risk syncope
Polymorphic VT
Mild luminal coronary disease
Possible coronary vasospasm, suspected, not confirmed
Plan
Cardiac MRI
Amiodarone loading, needs to stay in hospital on tele
Dual chamber ICD after more Amiodarone on board, perhaps this Thursday, need dual chamber as atrial pacing support is anticipated to allow amiodarone
Will need senior living amio surveillance (baseline CXR, LFTs, TSH normal in the last month), will need PFT with DLCO in next month, I reviewed Amio risks, need for sunscreen
Depending on MRI findings additional testing and treatment may be indicated
[2024-12-21] MEDS: PACERONE 400 MG PO ×2 (12:34→21:06)
--- NOTE | 2024-12-21 12:50 | PTCARENOTE ---
Patient returned from MRI. Amiodarone gtt discontinued, started PO. Removed IV access per protocol
[2024-12-21] MEDS: CRESTOR 20 MG PO (18:09)
--- NOTE | 2024-12-21 19:06 | PTCARENOTE ---
Patient walking in room and halls. NSR on telemetry, VSS. Right forearm infiltrate tender to touch, mildly swollen, ice applied.Call monsalve in reach
[2024-12-21] MEDS: CORDARONE 103 MG IV (21:52)
[2024-12-21] MEDS: CORDARONE 518 MG IV (22:04)
[2024-12-21 22:13] LABS: Blood Urea Nitrogen 23 mg/dl (9-20); Calcium 9.5 mg/dl (8.4-10.2); Carbon Dioxide 28 mmol/L (22-30); Chloride 105 mmol/L (98-107); Estimated Creatinine Clearance 85 ml/min; Glucose 133 mg/dl (70-99); Magnesium 2.1 mg/dl (1.6-2.3); Potassium 4.9 mmol/L (3.5-5.1); Sodium 136 mmol/L (135-145); eGFR > 60.00
--- NOTE | 2024-12-22 00:30 | PTCARENOTE ---
At approx 21:00 patient rang call monsalve c/o chest tightness and dizziness. Assisted patient from chair to bed. Vitals obtained. BP 131/75. Tele monitor showed a brief run of polymorphic VT, strip placed in chart. Yvette NATH made aware.
Orders obtained for labs, K 4.9 and Mag 2.1. Nicolas NATH placed orders for Amio bolus followed by amio gtt. VAT made aware and at bedside, new IV placed in left forearm. Patient aware to notify staff if any discomfort, redness or swelling noted at
IV site. Medication administered--see MAR for further details. BP remains stable. Chest tightness has dissipated. Patient currently laying in bed. Call monsalve within reach.
[2024-12-22 04:11] VITALS: BP 116/70
[2024-12-22] MEDS: TYLENOL 650 MG PO (05:44)
--- NOTE | 2024-12-22 05:53 | VATNOTE ---
Called by PCN to evaluate IV line with Amio drip infusing. Pt reports pain about 1inch above insertion site. Upon further assessment + palpable cord and very tender to touch. No redness or swelling at insertion site. PCN placed Amio drip on hold
immediately. IV line was d/c and new IV line placed. PCN applied ice to area per protocol. Assessment of site will be ongoing.
[2024-12-22 06:14] LABS: Blood Urea Nitrogen 20 mg/dl (9-20); Calcium 9.1 mg/dl (8.4-10.2); Carbon Dioxide 24 mmol/L (22-30); Chloride 110 mmol/L (98-107); Estimated Creatinine Clearance 109 ml/min; Glucose 113 mg/dl (70-99); Potassium 4.4 mmol/L (3.5-5.1); Sodium 136 mmol/L (135-145); eGFR > 60.00
[2024-12-22 06:52] VITALS: BP 123/80
--- NOTE | 2024-12-22 08:08 | W.PN.CD ---
Today's Communication / Plan
-
IV amiodarone to oral
N.p.o. after midnight for ICD 12/23/2024
Impression / Plan
-
64-year-old gentleman with a past medical history of hypertension hypercholesterolemia and former smoker who was recently evaluated in the hospital for syncope. Evaluation included an EP consult by Dr. Coronado. He had an echocardiogram which
suggested normal left ventricular function and also had a cardiac catheterization with no evidence of obstructive coronary disease. There are mild luminal irregularities. Due to his reports of chest discomfort the possibility of coronary spasm was
entertained patient was placed on amlodipine. He was discharged with an outpatient quality assurance monitor body/rhythm star and had multiple short runs of VT which appeared consistent with polymorphic VT. Patient had some symptoms of palpitations
lightheadedness and chest pain. Based on the above findings patient is directed to go to the ER. He has been reassessed by EP/Dr. Coronado who is outlined in ED treatment plan. Patient has been initiated on IV amiodarone. With plan for MRI and ICD
this admit.
.
VT:
- polymorphic
- MRI 12/21/2024 with no infiltrative process. Estimated ejection fraction 50%. Report suggested mildly impaired left ventricular function with hypokinesis of inferoseptal and apical septal cardona.
- Patient had some additional runs of VT so IV amiodarone reinitiated. will transition back to oral
- Plan for ICD tomorrow.
-
CAD: Luminal irregularities on catheterization. Plan to continue aspirin and statin.
Hyperlipidemia: Continue statin
Cardiac MRI 12/21/2024
1. No MRI evidence for diffuse infiltrative myocardial disease or myocardial scarring.
2. Global systolic LV function: Mildly impaired.
3. Global systolic RV function: Normal.
Ejection fraction reported 50%. Mild hypokinesis of inferoseptal and apical septal cardona
Physical Exam
Vital Signs/Labs
Vital Signs
Temp Pulse Resp BP Pulse Ox
98.3 F 52 20 123/80 98
12/22/24 06:52 12/22/24 07:00 12/22/24 06:52 12/22/24 06:52 12/22/24 06:52
12/21/24 12/22/24 12/23/24
06:59 06:59 06:59
Actual Weight 77.5 kg
12/20/24 12:28
12/22/24 05:36
Magnesium 2.1 mg/dl (1.6-2.3) 12/21/24 21:47
Magnesium Cancelled 12/21/24 21:47
LAB Results
12/21/24
04:53
Troponin I < 0.012
Physical Exam
Constitutional: No acute distress
EENT: Anicteric
Cardiovascular: Rhythm & rate is regular
Respiratory: Wheeze Absent and Rhonchi Absent
GI: Soft, Non tender and Normal bowel sounds
Neuro/Psych: Alert and AO x 3
Data Reviewed
-
Date of Service: December 22, 2024
Medical Decision Making: Reviewed Test Results
X-Ray/CT/US/MRI/NUC/PET: Report Reviewed by me
Medical Tests (PFT, Pathology etc): Report Reviewed by me
Labs: Labs Reviewed by me
[2024-12-22] MEDS: PACERONE 400 MG PO ×2 (09:20→18:38)
[2024-12-22] MEDS: LOW STRENGTH ASPIRIN 81 MG PO (09:20)
--- NOTE | 2024-12-22 09:37 | PTCARENOTE ---
Initial skin assessment on admission documentation was incorrect. The documentation stated that the patient had a pressure wound on admission. However, the patient does not have a pressure wound. Instead, he has a small abrasion on his right hand
that is scabbed and measures 0.3 cm. Documentation corrected and verified with his nurse today.
--- NOTE | 2024-12-22 11:10 | CM ---
spoke to pt in room, he is prev indep, lives with his in a 2 story home with 3 steps to enter. he denies any dme's or dc planning needs. plan is for dc to home when medically stable.
[2024-12-22 12:23] VITALS: BP 145/83
[2024-12-22 15:04] VITALS: BP 132/79
--- NOTE | 2024-12-22 18:18 | VATNOTE ---
This VAT RN went to assess pt's old IV sites that were painful overnight while getting IV amio. Areas are slightly tender per pt, but no noted areas of redness. Slight chord palpated on both arms, but again areas not warm or reddened. Will continue
to monitor.
[2024-12-22] MEDS: CRESTOR 20 MG PO (18:20)
[2024-12-22 19:03] VITALS: BP 140/88
--- NOTE | 2024-12-22 19:15 | PTCARENOTE ---
Pt learning about ICD planned for 12/23. Pt up independently, denies any discomfort. Amiodarone infusion discontinued per , oral amiodarone given. Left forearm IV site with small firm area from IV amiodarone infiltrate, ice packs given
with improvement. Telemetry shows sinus rhythm with run of VT @17:50, pt noted chest tightness at the time, evening amiodarone dose given a little early. Potassium 4.4, Magnesium 2.1. Will monitor closely.
[2024-12-22 23:27] VITALS: BP 141/88
[2024-12-23] VITALS (9 sets, daily range): BP systolic 109–140; BP diastolic 73–86
[2024-12-23 05:37] LABS: Hematocrit 39.7 % (39.0-52.0); Hemoglobin 13.6 g/dL (13.0-18.0); Mean Corp Hgb Conc. 34.3 g/dL (33.0-37.0); Mean Corpuscular Volume 86.7 fL (80.0-94.0); Platelet Count 237 10^3/uL (130-400); Red Cell Dist. Width 12.1 % (11.5-14.5)
[2024-12-23 06:09] LABS: Albumin 3.9 g/dl (3.5-5.0); Blood Urea Nitrogen 19 mg/dl (9-20); Calcium 9.6 mg/dl (8.4-10.2); Carbon Dioxide 24 mmol/L (22-30); Chloride 108 mmol/L (98-107); Estimated Creatinine Clearance 109 ml/min; Glucose 99 mg/dl (70-99); Potassium 4.5 mmol/L (3.5-5.1); Sodium 137 mmol/L (135-145); eGFR > 60.00
[2024-12-23] MEDS: PACERONE 400 MG PO ×2 (08:40→19:44)
[2024-12-23] MEDS: LOW STRENGTH ASPIRIN 81 MG PO (08:40)
--- NOTE | 2024-12-23 09:49 | W.ICD.CONTRA ---
Post ICD/SKILLS TRAINER-D
-
History of OR?: No
LV Function
Left ventricular function study result?: Ejection Fraction >/= 40%
ACEI/ARB/ARNI
Patient already on ACEI/ARB/ARNI: No
ACEI/ARB/ARNI Not Indicated: Left Ventricular EF >/= 40%
Beta-Amara
Patient already on Beta Amara: No
Beta Amara Not Indicated: Left Ventricular EF >/= 40%
--- NOTE | 2024-12-23 13:23 | ITS.CL.ICD ---
Psychiatry Adult Physician - ICD
Implantable Cardioverter Defibrillator
Procedure Report:
Date of Procedure: December 23, 2024.
Procedures:� Dual chamber [employer] ICD implant.
Indication:� Secondary prevention ICD. High risk syncope representing aborted sudden cardiac arrest. Syncope without prodrome. Follow-up telemetry revealed frequent runs of polymorphic ventricular tachycardia. No heart failure. Normal LVEF. Narrow
QRS. Cardiac MRI suggested subtle wall motion abnormalities not seen on echocardiogram but no abnormal enhancement. Luminal coronary artery disease.
Performing physician: Jules Coronado MD, [facility].
Implants:�
Pulse Generator: [employer]; Model# D233; Serial# [id number].�
Atrial Lead: [employer]: Model# 7841 Serial# [id number].
Right Ventricular Lead: [employer]; Model# 0673; Serial# [id number].
Technique: A time out was performed. A 10 mL upper extremity venogram demonstrated patent right axillary, and subclavian veins. The procedure site was identified. The patient was anesthetized by the anesthesia service. Preoperative cefazolin was
administered. The patient was prepped and draped in the usual fashion. Local anesthetic was applied to the left prepectoral subcutaneous tissue. A 3 inch incision was made along the left deltopectoral groove. Dissection was carried to the fascia.
The left cephalic vein was easily isolated and proximal and distal control with 2-0 Vicryl suture. Using a micropuncture needle to access the cephalic vein under direct visualization a wire was advanced into the central circulation. A retained
guidewire technique was employed. The leads were introduced with hemostatic peel away introducer sheaths. The ventricular lead was placed at the right ventricular mid to apical septum. The ventricular lead was secured to the pectoralis muscle and
fascia with two 0-silk sutures.� The atrial lead was then placed in the right atrial appendage. The atrial lead was secured to the pectoralis muscle and fascia with two 0-silk sutures. 10 volt pacing did not capture the diaphragm from either lead. A
subcutaneous pocket was created with Bovie cautery. Hemostasis was excellent. The leads were appropriately attached to the device. The pocket was irrigated with antibiotic solution. The device and leads were placed in the pocket.�The device was
secured to the pectoralis muscle with 0-silk suture. The incision was closed in three layers with absorbable suture. Steri-strips and a a silver impregnated dressing were placed. Estimated blood loss 15 ml.� There were no complications. Fluoroscopy
time: 2.5 minutes and DAP 0.713 GyCM2. The device was then interrogated after skin closure.
System Analysis:
RA lead: P: 4.9 mV; Threshold: 0.9 V @ 0.4 ms; Impedance: 675 ohms.
RV lead: R: 10.5 mV; Threshold: 0.5 V @ 0.4 ms; Impedance: 467 ohms. HV imp. 69 ohms
Final Programming: Tachy: VT 190 bpm, VF:220 bpm; Macho: DDDR 60-130 bpm. Monitor at 160 bpm.
Conclusion: Uncomplicated secondary prevention dual-chamber [employer] ICD implant.� The�ICD system is MRI safe/conditional.
Recommendation: Routine post ICD care.
cc: Chano Hassan MD and Alejandro Vivar DO.
[2024-12-23] MEDS: TYLENOL 650 MG PO ×2 (15:06→22:25)
[2024-12-23] MEDS: CRESTOR 20 MG PO (17:31)
[2024-12-23] MEDS: ANCEF 5 IV (17:31)
--- NOTE | 2024-12-23 18:14 | PTCARENOTE ---
Pt recovered from ICD placement in left anterior chest wall, dressing dry and intact, no sign of bleeding or hematoma. Activity restrictions well understood by pt. Pt given tylenol with good relief. Pt OOB independently, no difficulty
voiding.Telemetry shows sinus rhythm with rare triplets, PVC's.
--- NOTE | 2024-12-24 00:19 | PTCARENOTE ---
assumed care of patient. independent. family at the bedside. ambulating in room. SR on tele 60s-80s. Vpacing noted at times. bp stable. L chest site CDI- pressure dressing intact. L arm immobilizer. reviewed activity restrictions with patient and
verbalized understanding. tylenol given for ICD site pain-see mar. reviewed plan of care and verbalized understanding. questions answered. call monsalve within reach.
[2024-12-24 02:51] VITALS: BP 130/82
[2024-12-24] MEDS: ANCEF 5 IV (02:53)
[2024-12-24 03:44] LABS: Hematocrit 40.9 % (39.0-52.0); Hemoglobin 13.8 g/dL (13.0-18.0); Mean Corp Hgb Conc. 33.7 g/dL (33.0-37.0); Mean Corpuscular Volume 87.4 fL (80.0-94.0); Platelet Count 216 10^3/uL (130-400); Red Cell Dist. Width 12.4 % (11.5-14.5)
[2024-12-24 04:06] LABS: Blood Urea Nitrogen 19 mg/dl (9-20); Calcium 9.2 mg/dl (8.4-10.2); Carbon Dioxide 24 mmol/L (22-30); Chloride 109 mmol/L (98-107); Estimated Creatinine Clearance 109 ml/min; Glucose 96 mg/dl (70-99); Magnesium 1.8 mg/dl (1.6-2.3); Potassium 4.5 mmol/L (3.5-5.1); Sodium 139 mmol/L (135-145); eGFR > 60.00
[2024-12-24] MEDS: PACERONE 400 MG PO (08:21)
[2024-12-24] MEDS: LOW STRENGTH ASPIRIN 81 MG PO (08:21)
[2024-12-24] MEDS: TYLENOL 650 MG PO (08:22)
--- NOTE | 2024-12-24 08:45 | W.PN.UPDATE ---
Addendum entered and electronically signed by Felicia Judge MD 12/24/24 09:38:
I saw and evaluated the patient, and I provided the substantive portion of the medical decision making.
I reviewed and agree with the note by Terri Adamson and it accurately reflects our care.
I personally performed the medical decision making of the this encounter and my assessment and plan is below:
He is feeling well, felt a little anxious yesterday reading about amiodarone. On exam, device site looks good. Dressing is clean dry and intact. No hematoma. Lungs are clear to auscultation bilaterally, regular rate and rhythm.
Chest x-ray shows no pneumothorax and RA and RV pacing leads in place.
Assessment:
VT: Complete amiodarone load at home, dual-chamber ICD now in place. Follow-up at device clinic. Reviewed activity restrictions.
Follow-up with Dr. Hassan.
Greater than 30-minute spent in his discharge today.
For TIME:
I saw and evaluated the patient in coordination with the advanced practice provider [ ] and agree with their note.
I spent a total of [ ] minutes (including overlapping time with [ ]. I [did/did not] spend more than half of the total time of the visit.
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
Comment:
Original Note:
Update Note
Progress Note Update
Feeling well s/p ICD implant yesterday, pressure dressing removed. Aquacell dressing intact. Vitals, labs and tele WNL. Reviewed left arm restrictions with patient, he verbalized understanding. Stable for d/c home today and follow up as scheduled
with our office.
--- NOTE | 2024-12-24 08:53 | W.DS.TRANS ---
DC Summary - Interior Design Instructor
-
Discharge Instructions:
Discharge Diagnosis/Procedures ICD implant
Diet Low Cholesterol
Driving Restrictions No driving for 1 week
Bathing Restrictions OK to Shower
Instructions:
Stand-Alone Forms: DC Inst - Implanted Device
Changes to Home Medications: Yes
Discharge Medications:
DC Medications w/original date entered in [employer]
amlodipine 2.5 mg tablet 2.5 mg PO DAILY Blood Pressure 12/20/24
aspirin 81 mg chewable tablet 81 mg PO DAILY Blood Clot Prevention/Tx 12/20/24
rosuvastatin 20 mg tablet 20 mg PO QPM High Cholesterol 12/20/24
amiodarone 200 mg tablet (Pacerone) 400 mg (2 x 200 mg) PO BID #180 tabs 12/23/24
Home Medication Changes
Amiodarone is new.
Pending Results: No
[2024-12-24] MEDS: FLUZONE (6 mos+) 2025-2026 FORMULA 0.5 ML IM (09:54)
--- NOTE | 2024-12-24 10:36 | PTCARENOTE ---
pt paced on the monitor, hr in the 80s, vss. pt c/o 'a little' pain in left upper chest, Tylenol given and relief found. pt ambulating through the halls and tolerating well. pt educated on limitations of arm. dressing left chest wall, cdi. pt
verbalized understanding of directions and left with belongings from room. pt left via wheelchair with staff member.
== END 2024-12-24 10:38 | disposition home or self-care (01) | DRG 277 ==
LOC: IVU 14:20
PROVIDERS: Internal Medicine Cardiovascular Disease; Nurse Practitioner; Nurse Practitioner Adult Health; Nurse Practitioner Gerontology; Physician Assistant Medical; ADMITTING PHYSICIAN Internal Medicine Cardiovascular Disease; EMERGENCY PHYSICIAN Student in an Organized Health Care Education/Training Program
PROC: 02HK3KZ Insertion of Defibrillator Lead into Right Ventricle, Percutaneous Approach (ICD-10-PCS; 2024-12-23)
PROC: 02H63KZ Insertion of Defibrillator Lead into Right Atrium, Percutaneous Approach (ICD-10-PCS; 2024-12-23)
PROC: 0JH608Z Insertion of Defibrillator Generator into Chest Subcutaneous Tissue and Fascia, Open Approach (ICD-10-PCS; 2024-12-23)
PROC: 3E02340 Introduction of Influenza Vaccine into Muscle, Percutaneous Approach (ICD-10-PCS; 2024-12-24)
DX: I47.29 Other ventricular tachycardia (principal); I25.10 Atherosclerotic heart disease of native coronary artery without angina pectoris; R00.1 Bradycardia, unspecified; I10 Essential (primary) hypertension; E78.00 Pure hypercholesterolemia, unspecified; F17.200 Nicotine dependence, unspecified, uncomplicated; Z79.82 Long term (current) use of aspirin; Z23 Encounter for immunization
CPT/HCPCS: 33249; 71045; 75561; 80048; 80053; 80069; 83735; 84484; 85025; 85027; 90656; 93005; 99285; A9585; C1721; C1777; C1898; G0008; Q9967

== ENCOUNTER 2025-01-13 13:53 | Inpatient (IN) | payer OTHER, SELFPAY ==
[2025-01-13] VITALS (13 sets, daily range): BP systolic 119–148; BP diastolic 76–110; BMI 24.7; BMI 24.0
--- NOTE | 2025-01-13 10:37 | ED.GENMED ---
History of Present Illness
<Leonora Gray MD - Last Filed: 01/13/25 13:38>
General
Chief Complaint: AICD Problem
Time Seen by Provider: 01/13/25 10:05
<Ambar Daigle PA-C - Last Filed: 01/14/25 09:55>
General
Source: patient
Exam Limitations: none
Nursing documentation reviewed up to this point in time: agreed with
History of Present Illness
History of Present Illness:
Patient is a 64-year-old male who presents to the emergency department after syncopal event at home followed by ICD shock. Patient states that he was seated after eating his breakfast this morning when he started to feel lightheaded. He remembers
feeling palpitations, mild chest tightness and dyspnea prior to syncope. He denies any head strike. He states that he was waking up after a brief period of unconsciousness when he was shocked by his ICD.
He contacted his device corporate representative who recommended that he come to the emergency department as he was noted to be in V. tach at time of device discharge.
He has been experiencing symptoms frequently since ICD was placed. However�today symptoms were more persistent and severe resulting in syncope.
Patient presented to the ED about 1 month ago after syncope and was found to be in polymorphic ventricular tachycardia and had an ICD placed on 12/23/2024. He was initially taking amiodarone 400 mg twice daily however was instructed to decrease
this to 400 mg daily after few weeks.
He currently feels well and asymptomatic.
Review of Systems
<Ambar Daigle PA-C - Last Filed: 01/14/25 09:55>
Review of Systems
Allergies reviewed?: Yes
All Other Systems: ROS reviewed and negative except as documented in HPI and ROS
Phy Exam
<Ambar Daigle PA-C - Last Filed: 01/14/25 09:55>
Physical Exam
Physical Exam:
Vitals: Hypertensive on arrival, otherwise vital signs stable. Afebrile
General: Patient is well appearing, no acute distress
Skin: Warm and dry, no rashes or lesions
Head: Normocephalic, atraumatic
Eyes: Sclera nonicteric.
Throat: Protecting airway
Neck: Normal ROM, no cervical spine tenderness, no meningismus
Cardiac: Regular rate and rhythm, no murmurs. 2+ palpable radial pulses bilaterally
Pulm: Normal respiratory effort. Lungs clear bilaterally
Abdomen: No abdominal tenderness.
Extremities: No evidence of cyanosis or edema
Neuro: AAOx3. Grossly intact.
Psychiatric: Normal affect.
Course
<Leonora Gray MD - Last Filed: 01/13/25 13:38>
Orders/Labs/Results
Orders:
Orders
01/13/25 09:19
Electrocardiogram (*1) Urgent
Reason for Study: Other
Other Reason for Exam: AICD
01/13/25 09:20
EKG- Treatment ONCE
01/13/25 10:21
Interrogate Pacemaker- Treatment ONCE
01/13/25 10:47
Complete Blood Count/With Diff Urgent
Comprehensive Metabolic Panel Urgent
Magnesium Urgent
Troponin I Urgent
01/13/25 11:25
Amiodarone [Cordarone] 150 mg Dextrose 5%/Water 100 ml [D5w] 100 ml IV NOW
01/13/25 11:30
Amiodarone [Cordarone] 450 mg DEXTROSE 5% PVC-free BAG [D5W PVC-free BAG] 250 ml IV PER PROTOCOL
Initial Dose in mg/min:: 1
Duration of initial dose (hours):: 6
Subsequent dose in mg/min:: 0.5
Duration of subsequent dose (hours):: 18
Maximum dose in mg/min:: 1
Hold and notify provider if:: Heart rate < 60 BPM or SBP < 90 mmHg or MAP < 60 mmHg
01/13/25 13:42
Admit/Transfer Patient As Directed
Co-Sign Provider:
Level of Care: Inpatient admission
Assign to:: Telemetry
Physician / Group: Hospitalist
Diagnosis: V-tach
Reason for Telemetry: Arrhythmia
Date to Stop Telemetry: 01/16/25
Time to Stop Telemetry: 11:00
Reason for Hospitalization: V-tach
Expected length of stay greater than two midnights?: Yes
ELOS- Estimated Length of Stay in days: 3
I certify the patient meets the requirements for IP care: Yes
PRN Pain Medication Management As Directed
May give lesser potent ordered pain med per pt: Yes
preference::
Protocol:: Medication orders for pain may be administered in a
manner that supports deferring to patient preference
when the pt is:
- Requesting an ordered lesser potent pain medication.
Least to most potent pain medications are defined
as: acetaminophen < NSAID < tramadol < opioids
(morphine, oxycodone, hydromorphone).
- Requesting a lesser dose of the same medication IF
ORDERED.
- Requesting a less intrusive route of administration
if both routes are prescribed by the provider (PO <
IV).
01/13/25 13:43
Code Status As Directed
Resuscitation Status: Full Code
01/13/25 Dinner
Regular
At Your Request: Full Participation
01/13/25 15:45
Acetaminophen [Tylenol] 650 mg PO Q4HPRN PRN
Alprazolam [Xanax] 1 mg PO Q6HPRN PRN
Bisacodyl [Dulcolax] 10 mg RECTAL [id number] PRN
Docusate W/Senna [Senokot-S] 1 tablet PO BIDPRN PRN
Polyethylene Glycol Powder [Miralax] 17 grams PO DAILYPRN PRN
01/13/25 15:45
Activity As Directed
Activity Level: Ambulate
Pneumatic Compression Sleeves As Directed
Type: Knee high
Vital Signs As Directed
Frequency: Per unit guidelines
DX Deep Vein Thrombosis Video Routine
01/13/25 18:00
Rosuvastatin Calcium [Crestor] 20 mg PO QPM
01/13/25 21:31
Troponin I Q6H
01/14/25 07:21
Basic Metabolic Panel IN AM
Cardiovascular Evaluation IN AM
Complete Blood Count/No Diff IN AM
Magnesium IN AM
TSH IN AM
01/14/25 08:00
Amlodipine [Norvasc] 2.5 mg PO DAILY
Aspirin Chewable [Low Strength Aspirin] 81 mg PO DAILY
01/16/25 11:00
DC Protocol for Telemetry ONCE
Abnormal Lab Results
01/13/25
10:47
Absolute Lymphs (auto) 0.8 L 10^3/uL
(1.2-3.4)
Neutrophils % 79.8 H %
(42.2-75.2)
Lymphocytes % 11.3 L %
(20.5-51.1)
BUN 21 H mg/dl
(9-20)
Glucose 105 H mg/dl
(70-99)
ALT 53 H U/L
(0-50)
01/13/25 10:47
01/13/25 10:47
Vital Signs
Initial and Last Documented VS:
Initial Vital Signs
Temp Pulse Resp BP Pulse Ox
97.6 F 68 18 143/110 97
01/13/25 09:14 01/13/25 09:14 01/13/25 09:14 01/13/25 09:14 01/13/25 09:14
Last Documented Vital Signs
Temp Pulse Resp BP Pulse Ox
97.7 F 92 16 121/69 95
01/14/25 07:51 01/14/25 07:51 01/14/25 07:51 01/14/25 07:51 01/14/25 07:51
<Ambar Daigle PA-C - Last Filed: 01/14/25 09:55>
Orders/Labs/Results
Orders:
Orders
01/13/25 09:19
Electrocardiogram (*1) Urgent
Reason for Study: Other
Other Reason for Exam: AICD
01/13/25 09:20
EKG- Treatment ONCE
01/13/25 10:21
Interrogate Pacemaker- Treatment ONCE
01/13/25 10:47
Complete Blood Count/With Diff Urgent
Comprehensive Metabolic Panel Urgent
Magnesium Urgent
Troponin I Urgent
01/13/25 11:25
Amiodarone [Cordarone] 150 mg Dextrose 5%/Water 100 ml [D5w] 100 ml IV NOW
01/13/25 11:30
Amiodarone [Cordarone] 450 mg DEXTROSE 5% PVC-free BAG [D5W PVC-free BAG] 250 ml IV PER PROTOCOL
Initial Dose in mg/min:: 1
Duration of initial dose (hours):: 6
Subsequent dose in mg/min:: 0.5
Duration of subsequent dose (hours):: 18
Maximum dose in mg/min:: 1
Hold and notify provider if:: Heart rate < 60 BPM or SBP < 90 mmHg or MAP < 60 mmHg
01/13/25 13:42
Admit/Transfer Patient As Directed
Co-Sign Provider:
Level of Care: Inpatient admission
Assign to:: Telemetry
Physician / Group: Hospitalist
Diagnosis: V-tach
Reason for Telemetry: Arrhythmia
Date to Stop Telemetry: 01/16/25
Time to Stop Telemetry: 11:00
Reason for Hospitalization: V-tach
Expected length of stay greater than two midnights?: Yes
ELOS- Estimated Length of Stay in days: 3
I certify the patient meets the requirements for IP care: Yes
PRN Pain Medication Management As Directed
May give lesser potent ordered pain med per pt: Yes
preference::
Protocol:: Medication orders for pain may be administered in a
manner that supports deferring to patient preference
when the pt is:
- Requesting an ordered lesser potent pain medication.
Least to most potent pain medications are defined
as: acetaminophen < NSAID < tramadol < opioids
(morphine, oxycodone, hydromorphone).
- Requesting a lesser dose of the same medication IF
ORDERED.
- Requesting a less intrusive route of administration
if both routes are prescribed by the provider (PO <
IV).
01/13/25 13:43
Code Status As Directed
Resuscitation Status: Full Code
01/13/25 Dinner
Regular
At Your Request: Full Participation
01/13/25 15:45
Acetaminophen [Tylenol] 650 mg PO Q4HPRN PRN
Alprazolam [Xanax] 1 mg PO Q6HPRN PRN
Bisacodyl [Dulcolax] 10 mg RECTAL [id number] PRN
Docusate W/Senna [Senokot-S] 1 tablet PO BIDPRN PRN
Polyethylene Glycol Powder [Miralax] 17 grams PO DAILYPRN PRN
01/13/25 15:45
Activity As Directed
Activity Level: Ambulate
Pneumatic Compression Sleeves As Directed
Type: Knee high
Vital Signs As Directed
Frequency: Per unit guidelines
DX Deep Vein Thrombosis Video Routine
01/13/25 18:00
Rosuvastatin Calcium [Crestor] 20 mg PO QPM
01/13/25 21:31
Troponin I Q6H
01/14/25 07:21
Basic Metabolic Panel IN AM
Cardiovascular Evaluation IN AM
Complete Blood Count/No Diff IN AM
Magnesium IN AM
TSH IN AM
01/14/25 08:00
Amlodipine [Norvasc] 2.5 mg PO DAILY
Aspirin Chewable [Low Strength Aspirin] 81 mg PO DAILY
01/16/25 11:00
DC Protocol for Telemetry ONCE
Abnormal Lab Results
01/13/25
10:47
Absolute Lymphs (auto) 0.8 L 10^3/uL
(1.2-3.4)
Neutrophils % 79.8 H %
(42.2-75.2)
Lymphocytes % 11.3 L %
(20.5-51.1)
BUN 21 H mg/dl
(9-20)
Glucose 105 H mg/dl
(70-99)
ALT 53 H U/L
(0-50)
01/13/25 10:47
01/13/25 10:47
Vital Signs
Initial and Last Documented VS:
Initial Vital Signs
Temp Pulse Resp BP Pulse Ox
97.6 F 68 18 143/110 97
01/13/25 09:14 01/13/25 09:14 01/13/25 09:14 01/13/25 09:14 01/13/25 09:14
Last Documented Vital Signs
Temp Pulse Resp BP Pulse Ox
97.7 F 92 16 121/69 95
01/14/25 07:51 01/14/25 07:51 01/14/25 07:51 01/14/25 07:51 01/14/25 07:51
<Ambar Daigle PA-C - Last Filed: 01/14/25 09:55>
MDM/Problems Addressed
Differential Diagnosis Includes:
Not limited to: Ventricular tachycardia, cardiac arrhythmia, electrolyte abnormality, orthostatic hypotension, hypoglycemia, etc.
MDM/Problems Addressed:
64-year-old male with history of ventricular tachycardia s/p ICD placement presents after syncope with ICD shock this morning. Asymptomatic upon arrival to ED. Recent decrease in amiodarone dose. Vital stable. Physical exam as above. Initial
EKG shows sinus rhythm with first-degree AV block.
Device interrogated, which shows episode of ventricular tachycardia at 8:17 AM which correlates with syncope and shock. Labs unremarkable.
This may be related to recent change in dose of amiodarone. Discussed with cardiology, patient given amiodarone bolus and placed on drip in ED. He will require admission for further management and likely medication dose adjustments. Patient
excepted to hospitalist service in stable condition. Cardiology will consult.
Chronic conditions affecting care:
History of polymorphic ventricular tachycardia s/p ICD placement
Acute Exacerbation and/or Progression of Chronic Illness:
Ventricular tachycardia resulting in ICD shock
<Leonora Gray MD - Last Filed: 01/13/25 13:38>
*Pulse Oximetry
SaO2: 97
Oxygen Mode of Delivery: Room air
*Critical Care Note
Total Time (30-74mins, 75-104mins- exclusive of procedures): 35
comment:
Critical care statement: A total of 35 minutes of critical care time was provided for this patient. This includes management of unstable vital signs, evaluation of the patient at bedside, reviewing the patient's pertinent medical records, ordering
and reviewing studies, arranging urgent treatment with development of a management plan, evaluating patient's response to treatment, frequent reassessment, and discussion with consultants. This time was separate from time utilized to perform the
aforementioned documented procedures.
<Ambar Daigle PA-C - Last Filed: 01/14/25 09:55>
*Pulse Oximetry
Patient hypoxic: no
*EKG
Interpreted by ED Provider?: Yes
Interpretation: normal
Comparison EKG: no changes
Heart Rate: 66
Rate: normal
Rhythm: sinus
Jenks: normal axis
Interval: normal QT interval and first degree heart block
QRS Pattern: normal QRS
Ischemia: no ischemia
*Pl[employer] Interpretation
Rate: normal
Interpretation: normal
Heart Rate: 64
Rhythm: sinus
<Ambar Daigle PA-C - Last Filed: 01/14/25 09:55>
Patient Management
Discussion with other providers: Hospitalist and [employer]er (Case discussed with cardiology)
ED Attending Note
<Leonora Gray MD - Last Filed: 01/13/25 13:38>
ED Attending Note
Patient seen and examined by attending physician: Yes
I performed the substantive portion of visit, reviewed & personally made and approve the management plan that is documented in note by myself or EFE.: Yes
ED Attending Note:
I have seen and evaluated the patient with a [id number] encounter. I have spoken to the [EFE] and involved in the medical history, the physical exam, medical decision making.
Evaluation and management service: agree unless noted differently below.
Results interpretation: agree unless noted differently below.
64-year-old man presenting to the emergency department with concerns for AICD defibrillating. Per chart review patient was discharged on December 23 after he was admitted for polymorphic V. tach and had a AICD placed. He is on amiodarone. Patient
states that last week his amiodarone went from twice daily to daily dosing. Since then every morning he feels lightheaded dizzy. This morning his symptoms are the most severe where he had palpitations lightheadedness and had vision changes and
then had a syncopal episode. He woke up on the floor. At this time patient has no complaints. He does state that he spoke to the device rep and he did go into V. tach.
GENERAL: in no acute distress
HEENT: normocephalic, extraocular movements intact, moist oral mucosa
NECK: normal inspection
RESPIRATORY: no respiratory distress, clear to auscultation bilaterally
CARDIOVASCULAR: regular rate and rhythm
ABDOMEN/: soft, non-distended, non-tender to palpation, no rebound or guarding
EXTREMITIES: non-tender, no edema/swelling
NEUROLOGIC: awake and alert, moves all extremities
SKIN: warm
Patient is a 64-year-old man with recent diagnosis of polymorphic V. tach with AICD presenting to the emergency department with concerns of an ICD shock. On arrival patient is resting comfortably and he is not tachycardic. Concern for AICD shock
secondary to arrhythmia versus electrolyte derangement. Will check blood work. Discussed with cardiology who recommended amiodarone bolus and drip. Patient will need admission for further evaluation and monitoring.
-
Portions of this chart may have been created with voice recognition software.� Occasional wrong word or��sound alike� substitutions may have occurred due to the inherent limitations of voice recognition software.
Discharge Plan
Departure
Patient Disposition: Admit
Date of Disposition: 01/13/25
Time of Disposition: 11:52
Presentation/result/management discussed w/ accepting MD/DO: Hospitalist
Discharge Problem:
Ventricular tachycardia
Interventions
Interventions:
*Risk Screen - Suicide Last Done: 01/13/25 09:14
*General Assessment Last Done: 01/13/25 13:02
*Neglect/Abuse Screening Last Done: 01/13/25 09:14
*ED- Fall Risk Assessment Last Done: 01/13/25 11:24
*ED COVID-19 Vaccine History Last Done: 01/13/25 11:24
*ED Influenza Vaccine History Last Done: 01/13/25 11:24
*Nursing Disposition Last Done: 01/13/25 15:39
ED- Cardiac Assessment Last Done: 01/13/25 10:29
Discharge Date and Time
Discharge Date/Time: 01/13/25 15:40
[2025-01-13 10:53] LABS: Hematocrit 42.5 % (39.0-52.0); Hemoglobin 14.4 g/dL (13.0-18.0); Mean Corp Hgb Conc. 33.9 g/dL (33.0-37.0); Mean Corpuscular Volume 90.4 fL (80.0-94.0); Nucleated Red Blood Cells % 0 % (-); Platelet Count 261 10^3/uL (130-400); Red Cell Dist. Width 12.2 % (11.5-14.5)
--- NOTE | 2025-01-13 11:09 | CON.CAR ---
Addendum entered and electronically signed by Adan Mills MD 01/13/25 15:13:
I saw and examined the patient independently, and performed majority of MDM.
The resident's note was reviewed and I agree with the note with changes/additions below.
Comment: 64 yo male with PMH of VT s/p ICD 12/23, non-obstructive CAD admitted with ICD shock due to VT at 270bpm. He felt dizzy, chest tightness prior, and then syncope. Amiodarone had been from 400mg bid to once daily on 01/06. He notices more
palps since then. Currently, asymptomatic. Exam with RRR, no murmurs, no edema. Tele and EKG: NSR. Recent cath, echo, MRI reviewed and were unremarkable.
Idiopathic VT. Life threatening. Now with ICD shock after reducing amiodarone dose. Reload with IV amiodarone, requires monitoring on tele. EP eval on Thursday, likely needs ablation.
Non-obstructive CAD. Stable. ASA, statin.
Original Note:
Consultation
Consultation Request
Date/Time Consultation Requested: 01/13/2025
Date/Time Consultation Performed: 01/13/2025; 11:10
Requesting Provider: Marshall Tuttle
Performing Provider: Dr. Adna Mills; Dr. Julius Tirado
Reason for Consultation: VT/VF, ICD shock
Medical History
-
Chief Complaint: palpitations, AICD defibrillating
History of Present Illness:
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
He recently presented ~ 1 month ago for syncope and was found to be in polymorphic ventricular tachycardia and had a dual-chamber ICD placed on 12/23/2024 after amiodarone load.
Upon discharge, he reports he was taking amiodarone 400mg BID and then changed to amiodarone 400mg qAM on 01/06/2025. Since then, he reports lightheadedness every day that he's able to 'breathe through'. During these episodes, he reports chest
tightness, palpitations, dyspnea that resolve once the he feels the heart rhythm normalizes. This morning, the symptoms were most severe with palpitations, lightheadedness, and then subsequent syncope while sitting at the kitchen table. As he was
reawakening, he felt the ICD shock him. Per documentation, he spoke to a device rep which confirmed that he did go into ventricular tachycardia.
During his previous admission, a cardiac MRI was done which showed no infiltrative process with estimated EF of 50% with mildly impaired left ventricular function and hypokinesis of inferoseptal and apical septal cardona.
Now, he reports feeling fine. at time of interview, denies chest pain, palpitations, dyspnea, headache.
Other ROS: he denies lower extremity swelling, or abdominal pain.
ED course initial VS HR 68, BP 143/110 -> 124/76,
During my interview, HR was 60-70s, BP 120s/70s, on room air 97% on monitor
electrolytes were within normal limits
EKG showed sinus rhythm with 1st degree AV block
troponin was negative (<0.012)
He received amiodarone IV in ED.
Past Medical History
Past Medical History: Arrhythmias, CAD, HTN and Hypercholesterolemia
Past Surgical History: Orthopedic and Tonsilectomy
Social History
Tobacco: Former Smoker
Alcohol: Occasional
Drug: None
Personal:
Living: With Family
Employment: Employed (works at [employer])
Allergies / Home Medications
Allergy/AdvReac Type Severity Reaction Status Date / Time
No Known Allergies Allergy Verified 12/20/24 11:51
�Medication �Instructions �Recorded �Confirmed �Type
amlodipine 2.5 mg tablet 2.5 mg PO DAILY Blood Pressure 12/20/24 01/13/25 History
aspirin 81 mg chewable tablet 81 mg PO DAILY Blood Clot 12/20/24 01/13/25 History
Prevention/Tx
rosuvastatin 20 mg tablet 20 mg PO QPM High Cholesterol 12/20/24 01/13/25 History
amiodarone 200 mg tablet (Pacerone) 400 mg PO DAILY Heart 01/13/25 01/13/25 History
Disease/Condition
Review of Systems
-
History Source: Patient
Constitutional: No Symptoms
EENT: No Symptoms
Respiratory: Trouble Breathing
Cardiac: Chest Pain, Palpitations and Syncope
Abdomen/GI: No Symptoms
: No Symptoms
Musculoskeletal: Other (no edema)
Skin: No Symptoms
Neurological: No Symptoms
Physical Exam
Vital Signs
Temp Pulse Resp BP Pulse Ox
97.6 F 60 12 143/110 97
01/13/25 09:14 01/13/25 10:27 01/13/25 10:27 01/13/25 09:14 01/13/25 10:37
Lab Results
01/13/25 10:47
Troponin <0.012
Na 136
K 4.7
Cr 0.9
Mg 2.1
LFTs
AST 33
ALT 53
AkhPhos 87
TSH (From 11/29/2024: 2.85)
EKG 01/13/2025
Vent. Rate : 66 BPM Atrial Rate : 66 BPM
P-R Int : 210 ms QRS Dur : 108 ms
QT Int : 428 ms P-R-T Axes : 69 81 63 degrees
QTcB Int : 448 ms
SINUS RHYTHM WITH 1ST DEGREE A-V BLOCK
OTHERWISE NORMAL ECG
Cardiac MRI: 12/21/2024
IMPRESSION:
1. No MRI evidence for diffuse infiltrative myocardial disease or myocardial scarring.
2. Global systolic LV function: Mildly impaired.
3. Global systolic RV function: Normal.
4. LV viability: Normal.
5. Valvular disease: Trace mitral regurgitation.
Left Heart Cath 12/09/2024
HEMODYNAMIC DATA
LV 157/11 (EDP 20) mmHg
AO 145/84 (mean 111) mmHg
CORONARY ANGIOGRAPHY
Dominance: right
LM: large, normal
LAD: large vessel giving rise to a small D1 and small D2 before becoming a diminutive vessel at the apex. There are mild luminal irregularities only.
LCx: Large vessel giving rise to a moderate caliber OM1, several small OM branches, a moderate caliber LPL 1, and small LPL 2. There are trivial luminal irregularities only.
RCA: moderate caliber vessel giving rise to a small RPDA and several small RPL branches. There is a smooth 40% stenosis in the proximal vessel and otherwise mild luminal irregularities only.
CONCLUSIONS
1. mildly elevated LV filling pressure and no aortic stenosis
2. nonobstructive coronary artery disease and right dominant system
Physical Exam
General: No Apparent Distress
HEENT: Normocephalic
Respiratory: Clear
Cardiac: Other (no murmurs on my exam)
GI: Soft, Non Tender and Normal Bowel Sounds
Genito-urinary: No Costovertebral Tender
Musculoskeletal: No Edema
Skin: Warm
Neuro: AO x 3, No Motor Deficits and Nonfocal/Grossly Intact
Psych: Calm
Impression / Plan
-
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
Ventricular tachycardia - likely idiopathic
- He likely has been experiencing episodes of ventricular tachycardia since transitioning to maintenance amiodarone dose
- This suggests insufficient pharmacologic control
- labs/electrolytes/EKG/troponin all largely unremarkable,
- cardiac MRI in 12/2024 was largely normal, no evidence of scarring; and left heart cath in 11/2024 was nonobstructive
- Altogether, these point away from a possible secondary cause of VT --> suggests idiopathic VTach
- Persistent symptoms despite amiodarone may also suggest refractory VTach
- LFTs (from 01/13/2025): AST 33, ALT 53, AlkPhos 87
- TSH (from 11/29/2024): 2.85
Plan:
- continue amiodarone loading
- will need EP evaluation for potential ablation
- continue to monitor on telemetry
CAD
- only chest tightness during episodes of palpitations, most likely VT
- negative troponins, nonischemic EKG
Plan:
- continue statin
- continue aspirin
HLD
- continue statin
HTN
- on amlodipine
- can consider stopping DHPR CCB and add beta-sushma to address VTach, but symptomatic despite being on amiodarone suggests that other pharamological approaches may not be sufficient
[2025-01-13 11:19] LABS: Troponin I < 0.012 ng/ml
[2025-01-13 11:46] LABS: ALT (SGPT) 53 U/L (0-50); AST (SGOT) 33 U/L (17-59); Albumin 4.4 g/dl (3.5-5.0); Alkaline Phosphatase 87 U/L (38-126); Blood Urea Nitrogen 21 mg/dl (9-20); Calcium 9.7 mg/dl (8.4-10.2); Carbon Dioxide 24 mmol/L (22-30); Chloride 104 mmol/L (98-107); Estimated Creatinine Clearance 91 ml/min; Glucose 105 mg/dl (70-99); Magnesium 2.1 mg/dl (1.6-2.3); Potassium 4.7 mmol/L (3.5-5.1); Sodium 136 mmol/L (135-145); Total Protein 6.4 g/dl (6.3-8.2); eGFR > 60.00
[2025-01-13] MEDS: CORDARONE 103 MG IV (12:05)
[2025-01-13] MEDS: CORDARONE 259 MG IV (12:24)
--- NOTE | 2025-01-13 13:20 | HPS.HSE ---
Family Physician
-
Family Physician: KAYLAH Sosa
Chief Complaint
-
64 man had syncopal episode and felt ICV fire when he woke up.
History of Present Illness
64 man with recent placement of ICD had syncopal episode and felt ICD fire when he woke up. He was recently discharged from on 12/24/24. His hospital course was as follows:
'DISCHARGE DIAGNOSES:
1. Polymorphic ventricular tachycardia, symptomatic, with syncope.
2. Status post dual-chamber implantable cardioverter-defibrillator with [employer] on 12/23/2024.
3. Amiodarone loading.
4. Hypertension.
5. Hyperlipidemia.
6. Nonobstructive coronary artery disease by catheterization on 11/29/2024.
7. Former smoker. [he continues to smoke]
8. Daily ETOH.
HOSPITAL COURSE:
This is a 64-year-old white male who had recently been admitted for workup for syncope on 11/30/2024. He had an echocardiogram which showed normal LV function and a cardiac cath which showed no evidence of obstructive coronary artery disease with
mild luminal irregularities. He was placed on amlodipine for possibility of coronary spasms as he was having chest pain. 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
with polymorphic VT. He was called and directed to go to the emergency department and was admitted for amiodarone loading. He had a cardiac MRI, which showed no infiltrative process with estimated EF of 50% with mildly impaired left ventricular
function and hypokinesis of inferoseptal and apical septal cardona. He underwent dual-chamber ICD implantation with [employer]tr[employer] on 12/23/2024, with Dr. Coronado.
Post procedure, his site is stable. His chest x-ray shows no pneumothorax and leads in good position. His EKG is sinus rhythm. We will continue outpatient amiodarone loading with 400 mg of amiodarone 400 mg b.i.d. for two weeks and then decrease to
400 mg daily for three months and then continue to decrease to 200 mg daily. Thyroid function is normal. He will need outpatient PFTs for pulmonary function prior to being on amiodarone. Activity restrictions were reviewed. He will have an incision
check in one week. The patient is for preliminary discharge home on 12/24/2024.'
he has had lightheadedness every day since discharge that he 'breathes through'. Symptoms During these episodes are chest tightness, palpitations, dyspnea. Today symptoms were most severe with palpitations, lightheadedness, and then syncope. He
spoke to a device rep which confirmed that he had ventricular tachycardia. He reports large amounts of life stress for the last 24 hours.
Medical History
Past Medical History
Past Medical History: Reports Other
Additional Past Medical History:
Arrhythmias,
CAD,
essential HTN
Hypercholesterolemia
Past Surgical History: Reports Other
Additional Past Surgical History:
tonsils
ortho surgery
Social History
Tobacco: Smoker
Alcohol: Daily
Drug: None
Personal:
Living: With Family
Employment: Employed
Family History
Family History: Not pertinent
Allergies / Home Medications
Allergies reflects when Allergies were last updated in [facility].
Home Medications with original date entered in [facility]
Allergy/Medication List:
Allergies
Allergy/AdvReac Type Severity Reaction Status Date / Time
No Known Allergies Allergy Verified 12/20/24 11:51
Home Medications
amlodipine 2.5 mg tablet 2.5 mg PO DAILY Blood Pressure 12/20/24
aspirin 81 mg chewable tablet 81 mg PO DAILY Blood Clot Prevention/Tx 12/20/24
rosuvastatin 20 mg tablet 20 mg PO QPM High Cholesterol 12/20/24
amiodarone 200 mg tablet (Pacerone) 400 mg PO DAILY Heart Disease/Condition 01/13/25
Review of Systems
-
History Source: Patient
A 12 point ROS was completed and negative except as noted: Yes
Physical Exam
Vital Signs
Vital Signs
Temp Pulse Resp BP Pulse Ox
97.6 F 67 19 143/86 98
01/13/25 09:14 01/13/25 13:00 01/13/25 13:00 01/13/25 13:00 01/13/25 13:00
Physical Exam
General: Well Developed, Well Nourished, No Apparent Distress, Comfortable and Conversant
HEENT: NormoCephalic, Anicteric, Moist mucous membranes, Nose Appears Normal and Ears Appear Normal
Respiratory: Clear
Cardiac: S1/S2 and Regular Rhythm
GI: Soft, Non Tender and Non Distended
Musculoskeletal: No Clubbing, No Cyanosis and No Edema
Skin: Warm and Dry; No Rash or Jaundice
Neuro: Awake, Alert, Oriented and AO x 3
Psych: Calm
Laboratory Results
-
01/13/25 10:47
01/13/25 10:47
Laboratory Results
Total Bilirubin 0.9 mg/dl (0.2-1.3) 01/13/25 10:47
AST 33 U/L (17-59) 01/13/25 10:47
ALT 53 U/L (0-50) H 01/13/25 10:47
Alkaline Phosphatase 87 U/L (38-126) 01/13/25 10:47
Troponin I < 0.012 ng/ml 01/13/25 10:47
Data Reviewed
-
Lab Data: Labs Reviewed by me
Impression/Plan
-
IMPRESSION:
64 man with syncope, v-tach, and firing of his ICD. Notable data:
first troponin (-)
BUN/Creat > 20, (21/0.9)
ECG shows 1st deg AVB
PLAN:
1. Symptomatic v-tach in setting of increased stress, ongoing episodic smoking, and titration of amio dosing from recent visit to .
Cardiology consult appreciated
Cardiology consult states:
'Ventricular tachycardia - likely idiopathic
- He likely has been experiencing episodes of ventricular tachycardia since transitioning to maintenance amiodarone dose
- This suggests insufficient pharmacologic control
- labs/electrolytes/EKG/troponin all largely unremarkable,
- cardiac MRI in 12/2024 was largely normal, no evidence of scarring; and left heart cath in 11/2024 was nonobstructive
- Altogether, these point away from a possible secondary cause of VT --> suggests idiopathic VTach
- Persistent symptoms despite amiodarone may also suggest refractory VTach
- LFTs (from 01/13/2025): AST 33, ALT 53, AlkPhos 87
- TSH (from 11/29/2024): 2.85
Plan:
- continue amiodarone loading
- will need EP evaluation for potential ablation
- continue to monitor on telemetry'
2. H/O CAD - no chest pain, ECG does not show ischemia
Continue aspirin and statin
Cycle troponins
3. Essential HTN
Continue amlodipine
Re-eval once rhythm meds doses are resolved.
See other cardiology notes
4. Ongoing smoking
Stop smoking
5. Dehydration with BUN/Creat > 20
Oral hydration
Recheck labs in am
6. Increased life stress
Outpatient eval for SSRI
Emergency Xanax as needed until then
Full code
VCD for DVTp
--- NOTE | 2025-01-13 14:31 | EDCM ---
CM reviewed chart and met with pt bedside in ED. Pt lives with his in 2 story home, has ramp and 1 [address]AR[address]. first floor half bath, full flight to second floor bedroom and full bath.
Independent in ADLs, personal care and ambulation at baseline, no assistive devices.
Confirms prescription coverage.
No hx VN or SNF
PCP: Eveline aSpp
Pharmacy: [facility]
Anticipate discharge home, CM will continue to follow for any discharge planning needs.
[2025-01-13] MEDS: CRESTOR 20 MG PO (17:11)
[2025-01-13] MEDS: CORGARD 10 MG PO (19:05)
[2025-01-13 22:01] LABS: Troponin I < 0.012 ng/ml
[2025-01-14 03:22] VITALS: BP 103/65
[2025-01-14] MEDS: CORDARONE 259 MG IV (06:59)
[2025-01-14 07:42] LABS: Hematocrit 41.6 % (39.0-52.0); Hemoglobin 14.1 g/dL (13.0-18.0); Mean Corp Hgb Conc. 33.9 g/dL (33.0-37.0); Mean Corpuscular Volume 89.5 fL (80.0-94.0); Platelet Count 273 10^3/uL (130-400); Red Cell Dist. Width 12.3 % (11.5-14.5)
[2025-01-14 07:51] VITALS: BP 121/69
[2025-01-14 07:57] LABS: Blood Urea Nitrogen 15 mg/dl (9-20); Calcium 9.8 mg/dl (8.4-10.2); Carbon Dioxide 31 mmol/L (22-30); Chloride 102 mmol/L (98-107); Estimated Creatinine Clearance 82 ml/min; Glucose 105 mg/dl (70-99); HDL Cholesterol 74 mg/dl; LDL Cholesterol, Calculated 44 mg/dl; Magnesium 2.1 mg/dl (1.6-2.3); Potassium 5.4 mmol/L (3.5-5.1); Sodium 137 mmol/L (135-145); Very Low Density Lipoprotein 12 mg/dl (0-30); eGFR > 60.00
[2025-01-14 08:25] LABS: TSH 6.96 uIU/ml (0.47-4.68)
[2025-01-14] MEDS: NORVASC 2.5 MG PO (08:29)
[2025-01-14] MEDS: CORGARD 10 MG PO ×2 (08:29→14:14)
[2025-01-14] MEDS: LOW STRENGTH ASPIRIN 81 MG PO (08:29)
[2025-01-14] MEDS: VITAMIN B1 100 MG PO (11:02)
[2025-01-14 11:20] VITALS: BP 131/87
--- NOTE | 2025-01-14 14:00 | W.PN.CD ---
Today's Communication / Plan
-
-Patient placed back on IV amiodarone and nadolol added. No recurrent arrhythmias overnight. Currently without symptoms
-Continue medical therapy will discuss with EP regarding long-term management plan including potential for ablation
Impression / Plan
-
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
Ventricular tachycardia -
- Patient initially presented with syncope and then after outpatient evaluation was noted to have runs of polymorphic VT he then had ICD implant 12/23/2024 and was placed on amiodarone. Patient now admitted with VT and ICD shock. Patient was
noncompliant with medical therapy
-Patient placed back on IV amiodarone and nadolol added. No recurrent arrhythmias overnight. Currently without symptoms
-Continue medical therapy will discuss with EP regarding long-term management plan including potential for ablation
CAD
- only chest tightness during episodes of palpitations, most likely VT
- Previous catheterization without obstructive CAD. RCA 40%
HLD
- continue statin
HTN
- Patient on nadolol continue to monitor
Physical Exam
Vital Signs/Labs
Vital Signs
Temp Pulse Resp BP Pulse Ox
97.6 F 85 16 131/87 99
01/14/25 11:20 01/14/25 11:20 01/14/25 11:20 01/14/25 11:20 01/14/25 11:20
01/13/25 01/14/25 01/15/25
06:59 06:59 05:59
Actual Weight 78.154 kg
01/14/25 07:21
01/14/25 07:21
Magnesium 2.1 mg/dl (1.6-2.3) 01/14/25 07:21
Triglycerides 60 mg/dl (10-149) 01/14/25 07:21
LDL Cholesterol, Calc 44 mg/dl 01/14/25 07:21
VLDL Cholesterol, Calc 12 mg/dl (0-30) 01/14/25 07:21
HDL Cholesterol 74 mg/dl 01/14/25 07:21
TSH 6.96 uIU/ml (0.47-4.68) H 01/14/25 07:21
LAB Results
01/13/25 01/13/25 01/13/25
10:47 15:45 21:31
Troponin I < 0.012 Cancelled < 0.012
01/14/25
03:45
Troponin I Cancelled
Physical Exam
Constitutional: No acute distress
Cardiovascular: Rhythm & rate is regular
Respiratory: Wheeze Absent and Rhonchi Absent
GI: Soft, Non tender and Normal bowel sounds
Neuro/Psych: Alert, Oriented and AO x 3
Data Reviewed
-
Date of Service: January 14, 2025
Medical Decision Making: Reviewed Test Results
EKG: Report Reviewed by me
Medical Tests (PFT, Pathology etc): Report Reviewed by me
Labs: Labs Reviewed by me
--- NOTE | 2025-01-14 14:04 | W.PN.CD ---
Today's Communication / Plan
-
continue amiodarone
titrate Nadalol
Patient will have addtional asessmentby EP this admit
Impression / Plan
-
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
Ventricular tachycardia -
- Patient initially presented with syncope and then after outpatient evaluation was noted to have runs of polymorphic VT he then had ICD implant 12/23/2024 and was placed on amiodarone. Patient now admitted with VT and ICD shock. Patient was
noncompliant with medical therapy
-Patient placed back on IV amiodarone and nadolol added. No recurrent arrhythmias overnight. Currently without symptoms
-Continue medical therapy will discuss with EP regarding long-term management plan including potential for ablation
CAD
- only chest tightness during episodes of palpitations, most likely VT
- Previous catheterization without obstructive CAD. RCA 40%
HLD
- continue statin
HTN
- Patient on nadolol continue to monitor
Physical Exam
Vital Signs/Labs
Vital Signs
Temp Pulse Resp BP Pulse Ox
97.6 F 85 16 131/87 99
01/14/25 11:20 01/14/25 11:20 01/14/25 11:20 01/14/25 11:20 01/14/25 11:20
01/13/25 01/14/25 01/15/25
06:59 06:59 05:59
Actual Weight 78.154 kg
01/14/25 07:21
01/14/25 07:21
Magnesium 2.1 mg/dl (1.6-2.3) 01/14/25 07:21
Triglycerides 60 mg/dl (10-149) 01/14/25 07:21
LDL Cholesterol, Calc 44 mg/dl 01/14/25 07:21
VLDL Cholesterol, Calc 12 mg/dl (0-30) 01/14/25 07:21
HDL Cholesterol 74 mg/dl 01/14/25 07:21
TSH 6.96 uIU/ml (0.47-4.68) H 01/14/25 07:21
LAB Results
01/13/25 01/13/25 01/13/25
10:47 15:45 21:31
Troponin I < 0.012 Cancelled < 0.012
01/14/25
03:45
Troponin I Cancelled
Physical Exam
Constitutional: No acute distress
Cardiovascular: Rhythm & rate is regular
Respiratory: Respiratory effort normal
GI: Soft, Non tender and Normal bowel sounds
Neuro/Psych: Alert, Oriented and AO x 3
Other: Skin
Data Reviewed
-
Date of Service: January 14, 2025
Medical Decision Making: Reviewed Test Results
Medical Tests (PFT, Pathology etc): Report Reviewed by me
Labs: Labs Reviewed by me
--- NOTE | 2025-01-14 15:03 | W.PN.HOSP.TC ---
Today's Communication/Plan
-
Amiodarone infusion per cardiology
May place a midline
Assessment / Plan
Assessment / Plan
64-year-old male presented with palpitations, lightheadedness and a syncopal episode. Patient had a syncope 1 month ago also and was found to have polymorphic VT. He had ICD placed on 12/23/2024 after amiodarone load. Upon discharge he was on
amiodarone 400 mg twice daily then changed to 400 mg daily on 01/06/2025. He also felt an ICD shock. Last admission a cardiac MRI showed no infiltrative process .
Cardiac MRI: 12/21/2024-No MRI evidence for diffuse infiltrative myocardial disease or myocardial scarring.Global systolic LV function: Mildly impaired.Global systolic RV function: Normal.LV viability: Normal.Valvular disease: Trace mitral
regurgitation.
12/09/2024-left heart cath-mildly elevated LV filling pressure and no AAS. Nonobstructive coronary artery disease with right dominant system
On examination awake and alert
Cardiovascular system S1-S2 appreciated
Chest clear to auscultation
Abdomen soft and nontender
# Ventricular tachycardia with ICD shock
ICD placed on 12/23/2024
Currently on amiodarone 400 mg daily dosage as OP
Reloading with Amio
EP evaluation may need ablation
Monitor on telemetry
May place a midline for continued infusion
# Non Obstructive CAD per cath- ASA/Statin
# Hyperlipidemia-continue statin
# Hypertension-Hold amlodipine-Continue Corgard
# Smoker -Cessation counselling
# Daily alcohol use- Needs to stop. Thiamine
# DVT Prophylaxis- Add Lovenox
# Full Code
Discussed with nursing
Part of this note was created using voice recognition system. Occasional wrong word or��sound alike� substitutions may have inadvertently occurred due to the inherent limitations of voice recognition software. If noted kindly bring it to my
attention for correction.
Anticipated Discharge: > 48 hours
Subjective/Interval History
-
Date of Service: January 14, 2025
Objective Data
-
Labs:
Laboratory Results
01/14/25
07:21
WBC 6.3
Hgb 14.1
Hct 41.6
Plt Count 273
Sodium 137
Potassium 5.4 H
Chloride 102
Carbon Dioxide 31 H
BUN 15
Creatinine 1.0
Glucose 105 H
Calcium 9.8
Vital Signs:
Vital Signs
Temp Pulse Resp BP Pulse Ox
97.6 F 85 16 131/87 99
01/14/25 11:20 01/14/25 11:20 01/14/25 11:20 01/14/25 11:20 01/14/25 11:20
[2025-01-14] MEDS: PACERONE 400 MG PO ×2 (15:23→20:16)
[2025-01-14 15:45] VITALS: BP 110/74
[2025-01-14] MEDS: LOVENOX 40 MG SC (18:25)
[2025-01-14] MEDS: CRESTOR 20 MG PO (18:25)
[2025-01-14 19:00] VITALS: BP 111/73
[2025-01-14 23:30] VITALS: BP 131/83
[2025-01-15 07:49] VITALS: BP 109/80
[2025-01-15] MEDS: CORGARD 20 MG PO (07:49)
[2025-01-15] MEDS: PACERONE 400 MG PO ×2 (07:50→20:32)
[2025-01-15] MEDS: VITAMIN B1 100 MG PO (07:50)
[2025-01-15] MEDS: LOW STRENGTH ASPIRIN 81 MG PO (07:50)
[2025-01-15 09:40] LABS: Blood Urea Nitrogen 21 mg/dl (9-20); Calcium 9.4 mg/dl (8.4-10.2); Carbon Dioxide 27 mmol/L (22-30); Chloride 103 mmol/L (98-107); Estimated Creatinine Clearance 74 ml/min; Glucose 143 mg/dl (70-99); Magnesium 2.0 mg/dl (1.6-2.3); Potassium 4.9 mmol/L (3.5-5.1); Sodium 137 mmol/L (135-145); eGFR > 60.00
[2025-01-15 11:23] VITALS: BP 119/79
--- NOTE | 2025-01-15 12:26 | W.PN.CD ---
Today's Communication / Plan
-
No arrhythmias on telemetry.
Patient had some concern because he was noting his heart beating at rest and noticed that it was a beating faster it appears this is consistent with the change in his base rate yesterday. Patient was also wondering if he had any symptoms related to
nadolol but after further explanation regarding the increase in his pacing rate patient's comfortable with continuing current medical therapy. We will also check orthostatic signs continue current therapy. can continue current dosing of nadolol and
monitor blood pressures. EP can further assess patient's pacer settings to see if any additional adjustments would be appropriate.
Additonal assessment by EP01/16/25
Impression / Plan
-
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
Ventricular tachycardia -
- Patient initially presented with syncope and then after outpatient evaluation was noted to have runs of polymorphic VT he then had ICD implant 12/23/2024 and was placed on amiodarone. Patient now admitted with VT and ICD shock. Patient was
noncompliant with medical therapy
-Patient placed back on IV amiodarone and nadolol added. No recurrent arrhythmias overnight. Currently without symptoms
-Continue medical therapy will discuss with EP regarding long-term management plan including potential for ablation
CAD
- only chest tightness during episodes of palpitations, most likely VT
- Previous catheterization without obstructive CAD. RCA 40%
HLD
- continue statin
HTN
- Patient on nadolol continue to monitor
.
Subjective. Feeling heart beating more well at rest can feel that resting rate is elevated also feels like it is faster when he is active. Of note patient's base rate was increased yesterday and he is currently atrially paced 85 bpm
Physical Exam
Vital Signs/Labs
Vital Signs
Temp Pulse Resp BP Pulse Ox
97.5 F 88 16 119/79 98
01/15/25 11:23 01/15/25 11:23 01/15/25 11:23 01/15/25 11:23 01/15/25 11:23
01/14/25 01/15/25 01/16/25
06:59 05:59 06:59
Actual Weight 78.154 kg
01/14/25 07:21
01/15/25 08:52
Magnesium 2.0 mg/dl (1.6-2.3) 01/15/25 08:52
Triglycerides 60 mg/dl (10-149) 01/14/25 07:21
LDL Cholesterol, Calc 44 mg/dl 01/14/25 07:21
VLDL Cholesterol, Calc 12 mg/dl (0-30) 01/14/25 07:21
HDL Cholesterol 74 mg/dl 01/14/25 07:21
TSH 6.96 uIU/ml (0.47-4.68) H 01/14/25 07:21
LAB Results
01/13/25 01/13/25 01/13/25
10:47 15:45 21:31
Troponin I < 0.012 Cancelled < 0.012
01/14/25
03:45
Troponin I Cancelled
Physical Exam
Constitutional: No acute distress
Cardiovascular: Rhythm & rate is regular
Respiratory: Wheeze Absent and Rhonchi Absent
GI: Soft and Non tender
Data Reviewed
-
Date of Service: January 15, 2025
Medical Decision Making: Reviewed Test Results
EKG: Other (tele NSR)
Echo: Report Reviewed by me
Medical Tests (PFT, Pathology etc): Report Reviewed by me
Labs: Labs Reviewed by me
--- NOTE | 2025-01-15 15:00 | W.PN.HOSP.TC ---
Today's Communication/Plan
-
Amio
BB
Plans per cardiology
Assessment / Plan
Assessment / Plan
64-year-old male presented with palpitations, lightheadedness and a syncopal episode. Patient had a syncope 1 month ago also and was found to have polymorphic VT. He had ICD placed on 12/23/2024 after amiodarone load. Upon discharge he was on
amiodarone 400 mg twice daily then changed to 400 mg daily on 01/06/2025. He also felt an ICD shock. Last admission a cardiac MRI showed no infiltrative process .
Cardiac MRI: 12/21/2024-No MRI evidence for diffuse infiltrative myocardial disease or myocardial scarring.Global systolic LV function: Mildly impaired.Global systolic RV function: Normal.LV viability: Normal.Valvular disease: Trace mitral
regurgitation.
12/09/2024-left heart cath-mildly elevated LV filling pressure and no AAS. Nonobstructive coronary artery disease with right dominant system
On examination awake and alert
Cardiovascular system S1-S2 appreciated
Chest clear to auscultation
Abdomen soft and nontender
# Ventricular tachycardia with ICD shock
ICD placed on 12/23/2024
Currently on amiodarone 400 mg daily dosage as OP
Reloading with Amio
EP evaluation tomorrow-may need ablation
Monitor on telemetry
# Non Obstructive CAD per cath- ASA/Statin
# Hyperlipidemia-continue statin
# Hypertension-Hold amlodipine-Continue Corgard
# Smoker -Cessation counselling
# Daily alcohol use- Needs to stop. Thiamine
# DVT Prophylaxis- Add Lovenox
# Full Code
Discussed with nursing
D?W Family at bed side
Part of this note was created using voice recognition system. Occasional wrong word or��sound alike� substitutions may have inadvertently occurred due to the inherent limitations of voice recognition software. If noted kindly bring it to my
attention for correction.
Anticipated Discharge: 24 - 48 hours
Subjective/Interval History
-
Date of Service: January 15, 2025
Objective Data
-
Labs:
Laboratory Results
01/15/25
08:52
Sodium 137
Potassium 4.9
Chloride 103
Carbon Dioxide 27
BUN 21 H
Creatinine 1.1
Glucose 143 H
Calcium 9.4
Vital Signs:
Vital Signs
Temp Pulse Resp BP Pulse Ox
97.5 F 88 16 119/79 98
01/15/25 11:23 01/15/25 11:23 01/15/25 11:23 01/15/25 11:23 01/15/25 11:23
[2025-01-15 15:11] VITALS: BP 125/79
[2025-01-15] MEDS: LOVENOX SC (15:56)
[2025-01-15] MEDS: CRESTOR 20 MG PO (17:14)
[2025-01-15 19:00] VITALS: BP 118/81; BP 141/94; BP 142/91; PULSE 87; PULSE 88; PULSE 93
[2025-01-15 23:00] VITALS: BP 126/88
[2025-01-16 03:00] VITALS: BP 114/82
[2025-01-16 07:24] VITALS: BP 120/90; BP 126/86; BP 130/93; PULSE 87; PULSE 89
[2025-01-16 07:25] VITALS: BP 126/86
--- NOTE | 2025-01-16 07:38 | W.PN.HOSP.TC ---
Addendum entered and electronically signed by Yue Frye MD 01/16/25 13:46:
64-year-old male presented with palpitations, lightheadedness and a syncopal episode. Patient had a syncope 1 month ago also and was found to have polymorphic VT. He had ICD placed on 12/23/2024 after amiodarone load. Upon discharge he was on
amiodarone 400 mg twice daily then changed to 400 mg daily on 01/06/2025. He also felt an ICD shock. Last admission a cardiac MRI showed no infiltrative process .
Cardiac MRI: 12/21/2024-No MRI evidence for diffuse infiltrative myocardial disease or myocardial scarring.Global systolic LV function: Mildly impaired.Global systolic RV function: Normal.LV viability: Normal.Valvular disease: Trace mitral
regurgitation.
12/09/2024-left heart cath-mildly elevated LV filling pressure and no AAS. Nonobstructive coronary artery disease with right dominant system
On examination awake and alert
Cardiovascular system S1-S2 appreciated
Chest clear to auscultation
Abdomen soft and nontender
# Ventricular tachycardia with ICD shock
ICD placed on 12/23/2024
Currently on amiodarone 400 mg daily dosage as OP
Reloading with Amio, 400 twice daily
EP evaluation
Patient states that he is not feeling well with the Corgard he feels dizzy and also foggy. Will check with cardiology to see if they would be okay switching to metoprolol.
Monitor on telemetry
# Non Obstructive CAD per cath- ASA/Statin
# Hyperlipidemia-continue statin
# Hypertension-Hold amlodipine-Continue Corgard
# Smoker -Cessation counselling
# Daily alcohol use- Needs to stop. Thiamine
# DVT Prophylaxis- Lovenox
# Full Code
Discussed with nursing
Messaged cardiology
Part of this note was created using voice recognition system. Occasional wrong word or��sound alike� substitutions may have inadvertently occurred due to the inherent limitations of voice recognition software. If noted kindly bring it to my
attention for correction.
Original Note:
Today's Communication/Plan
-
EP evaluation today
cont amio
defer choice of alternative BB to cardio
Assessment / Plan
Assessment / Plan
64-year-old male presented with palpitations, lightheadedness and a syncopal episode. Patient had a syncope 1 month ago also and was found to have polymorphic VT. He had ICD placed on 12/23/2024 after amiodarone load. Upon discharge he was on
amiodarone 400 mg twice daily then changed to 400 mg daily on 01/06/2025. He also felt an ICD shock. Last admission a cardiac MRI showed no infiltrative process .
Cardiac MRI: 12/21/2024-No MRI evidence for diffuse infiltrative myocardial disease or myocardial scarring.Global systolic LV function: Mildly impaired.Global systolic RV function: Normal.LV viability: Normal.Valvular disease: Trace mitral
regurgitation.
12/09/2024-left heart cath-mildly elevated LV filling pressure and no AAS. Nonobstructive coronary artery disease with right dominant system
# Ventricular tachycardia with ICD shock
ICD placed on 12/23/2024
Currently on amiodarone 400 mg BID; was OD as OP
EP evaluation today -may need ablation
Monitor on telemetry
on nadolol- can consider alternative BB
orthostatic noted; neg
# Non Obstructive CAD per cath- ASA/Statin
# Hyperlipidemia-continue statin
# Hypertension-Hold amlodipine-Continue Corgard
# Smoker -Cessation counselling
# Daily alcohol use- Needs to stop. Thiamine
# DVT Prophylaxis- Lovenox
# Full Code
Anticipated Discharge: Within 24 hours
Subjective/Interval History
-
Date of Service: January 16, 2025
AFVSS. states he feels intermittent lightheaded bella after taking nadolol
Objective Data
-
Labs:
Laboratory Results
01/16/25
07:10
Sodium Pending
Potassium Pending
Chloride Pending
Carbon Dioxide Pending
BUN Pending
Creatinine Pending
Glucose Pending
Calcium Pending
Vital Signs:
Vital Signs
Temp Pulse Resp BP Pulse Ox
97.6 F 87 20 126/86 98
01/16/25 07:25 01/16/25 07:25 01/16/25 07:25 01/16/25 07:25 01/16/25 07:25
I&O
01/15/25 01/16/25 01/17/25
05:59 06:59 06:59
Intake Total 2159
Balance 2159
Review of Systems
-
History Source: Patient
Cardiac: Denies Chest Pain, Diaphoresis or Palpitations
Physical Exam
-
General: No Apparent Distress
HEENT: Moist Mucous Membranes
Respiratory: Clear to Auscultation; Negative Wheezes, Rales or Rhonchi
Cardiac: Regular Rhythm and S1/S2; Negative Murmur, Rub or Gallop
GI: Soft, Nontender, Nondistended and Normal Bowel Sounds
Musculoskeletal: No Edema
Skin: Warm and Dry; Negative Rash, Ulcers or Lesions
Neuro: Awake and AO x 3
Hematologic / Lymphatic: No Lymphadenopathy
Psych: Calm
Data Reviewed
-
Labs: Labs Reviewed by me, Discussed with Physician and Discussed with Patient
[2025-01-16] MEDS: PACERONE 400 MG PO (08:00)
[2025-01-16] MEDS: VITAMIN B1 100 MG PO (08:00)
[2025-01-16] MEDS: LOW STRENGTH ASPIRIN 81 MG PO (08:00)
[2025-01-16] MEDS: CORGARD 20 MG PO (08:00)
[2025-01-16 09:12] LABS: Blood Urea Nitrogen 23 mg/dl (9-20); Calcium 9.4 mg/dl (8.4-10.2); Carbon Dioxide 26 mmol/L (22-30); Chloride 105 mmol/L (98-107); Estimated Creatinine Clearance 91 ml/min; Glucose 90 mg/dl (70-99); Potassium 4.6 mmol/L (3.5-5.1); Sodium 138 mmol/L (135-145); eGFR > 60.00
--- NOTE | 2025-01-16 09:29 | W.PN.CD ---
Today's Communication / Plan
-
Echo today, followup
Amio 400 BID through 01/23/2025 then 400 mg daily. Plan at least 6 months of Amio 400 daily, then will likely try 200 mg daily
No change in nadolol, later increase incrementally to max tolerated
If Echo OK then OK for home later today
PVC ablation may be a future option!!
Watch for overt heart failure
Impression / Plan
-
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
ventricular tachycardia (polymorphic VT) terminated by ICD.
Polymorphic Ventricular tachycardia
- Amio had just been decreased to 200 mg a day
- Now I have increased pacing base rate to 85 bpm and added nadolol, now on mini-reload of Amio
- Tele negative here
- No clear cardiomyopathy
- Baseline QT looks fine
- MRI w/o abnormal enhancement
- Cath w/o 40% RCA and trivial luminal irregularities
- Echo at baseline unremarkable, mild MR
- Elevated LVEDP noted at cath
- PVC burden on 2d 3h monitor before Amio: 0.15%. Multiple runs of PMVT
- Outpt monitor did show more than 1 PVC can initiate the rapid polymorphic VT but there was one predominant PVC morphology => potential target for future ablation
Elevated LVEDP at cath, LVEDP was 20, no overt heart failure
- Some new HOWARD just noted after nadolol started
CAD, Non obstructive RCA 40%
HLD
HTN
Subjective: A bit of HOWARD. No CP
Physical Exam
Vital Signs/Labs
Vital Signs
Temp Pulse Resp BP Pulse Ox
97.6 F 87 20 126/86 98
01/16/25 07:25 01/16/25 08:00 01/16/25 07:25 01/16/25 08:00 01/16/25 07:25
01/14/25 07:21
01/16/25 07:10
Magnesium 2.0 mg/dl (1.6-2.3) 01/15/25 08:52
Triglycerides 60 mg/dl (10-149) 01/14/25 07:21
LDL Cholesterol, Calc 44 mg/dl 01/14/25 07:21
VLDL Cholesterol, Calc 12 mg/dl (0-30) 01/14/25 07:21
HDL Cholesterol 74 mg/dl 01/14/25 07:21
TSH 6.96 uIU/ml (0.47-4.68) H 01/14/25 07:21
LAB Results
01/13/25 01/13/25 01/13/25
10:47 15:45 21:31
Troponin I < 0.012 Cancelled < 0.012
01/14/25
03:45
Troponin I Cancelled
Physical Exam
Constitutional: No acute distress
Cardiovascular: Rhythm & rate is regular and Pedal edema is absent
Respiratory: Respiratory effort normal and Lungs clear to auscul.
GI: Soft and Distention absent
Neuro/Psych: AO x 3
Other: Cardiac Device Site (normal)
Data Reviewed
-
Date of Service: January 16, 2025
[2025-01-16 11:30] VITALS: BP 132/90
[2025-01-16 15:30] VITALS: BP 112/80
--- NOTE | 2025-01-16 16:35 | W.DCSUMMARY ---
Discharge Summary
Discharge Data
Date of Admission: 01/13/25
Date of Discharge: 01/16/25
-
Pending Results: No
Hospital Course
Discharging Physician : Huy Lora MD ; Yue Frye MD
Disposition : Home
Primary care physician : Eveline Sapp
Principal Discharge diagnosis : Ventricular tachycardia with ICD shock
Chronic Discharge diagnosis : nonobstructive CAD, hyperlipidemia, hypertension, smoker, daily alcohol use
Hospital Course : 64 yo M with PMHx of nonobstructive CAD, HTN, HLD, dual-chamber ICD on 12/23/2024 presented with palpitations, lightheadedness, and a syncopal episode. initial workup including EKG showed sinus rhythm with 1st degree AV block.
troponin was negative (<0.012). He received amiodarone IV in ED. cardiology was consulted and plan was made to reload IV amiodarone he was started on 400 mg twice daily. He was monitored on telemetry. His other medications including aspirin and
statin was continued. Amlodipine was placed on hold. He remained without any arrhythmia on telemetry. Nadolol was also added by the cardiology team. Patient's vitals remained stable during this admission. An echo was obtained as results below.
He was cleared by cardio for discharge with plan to follow outpatient. He was advised to discontinue amlodipine. Amiodarone 400 mg twice daily for 7 days then down to once daily. He was also advised to continue nadolol 20 mg daily. Prescription
were sent at the time of discharge.
He was also advised to follow-up with the family doctor within 1 week.
Return precautions including any worrisome concerns were reviewed with the patient.
Procedure findings : TRANSTHORACIC ECHOCARDIOGRAM REPORT
1. Normal biventricular size and function without regional wall motion abnormalities.
2. LVEF is 55-60% by visual estimation.
3. Mild mitral valve regurgitation.
4. Compared to prior from November 28, 2024, no significant change
Discharge Plan
-
Patient Disposition: Home (Routine Discharge)
Discharge Diagnosis/Procedures: Ventricular tachycardia with ICD shock, nonobstructive CAD, hyperlipidemia, hypertension, smoker, daily alcohol use
Condition: Fair
Diet: Regular
Activity: No restrictions and As tolerated
Driving Restrictions: As prior to admission
Bathing Restrictions: None
Referrals:
Chano Hassan MD [Active, Cardiology] - in less than 1 week
Eveline Sapp CRNP [Family Provider, Internal Medicine] - in less than 1 week
Additional Discharge Medication Instructions: Take amiodarone 400 mg(2 tablets of 200 mg) by mouth twice daily for 7 days and after that take 400 mg by mouth daily
Take nadolol 20 mg 1 tablet by mouth daily
Continue aspirin and rosuvastatin at previous doses.
Please discontinue amlodipine.
Please follow-up with your outpatient family doctor as well as tobacco dipper for any additional scripts as well as recommendations.
Prescriptions:
New
nadolol 20 mg Tablet
20 mg PO DAILY Qty: 30 0RF
amiodarone [Pacerone] 200 mg Tablet
400 mg PO BID Qty: 74 0RF
Rx Instructions:
Take 400 mg by mouth twice daily for 7 days. After that take 400 mg once daily.
Continued
aspirin 81 mg tablet,chewable
81 mg PO DAILY
rosuvastatin 20 mg tablet
20 mg PO QPM
Discontinued
amlodipine 2.5 mg tablet
2.5 mg PO DAILY
amiodarone [Pacerone] 200 mg tablet
400 mg PO DAILY
Discharge Orders:
Discharge Patient (As Directed); Ordered 01/16/25
Ordered By: Huy Lora
Discharge Date and Time
Print Language: VIET[place]ESE
== END 2025-01-16 17:38 | disposition home or self-care (01) | DRG 310 ==
LOC: 4 WEST ACU 13:53
PROVIDERS: Physician Assistant; ADMITTING PHYSICIAN Internal Medicine; ATTENDING PHYSICIAN Hospitalist; EMERGENCY PHYSICIAN Student in an Organized Health Care Education/Training Program; FAMILY PHYSICIAN Nurse Practitioner Adult Health; OTHER PHYSICIAN Internal Medicine
PROC: 4B02XTZ Measurement of Cardiac Defibrillator, External Approach (ICD-10-PCS; 2025-01-13)
DX: I47.29 Other ventricular tachycardia (principal); I25.10 Atherosclerotic heart disease of native coronary artery without angina pectoris; E78.00 Pure hypercholesterolemia, unspecified; F17.200 Nicotine dependence, unspecified, uncomplicated; I10 Essential (primary) hypertension; F10.90 Alcohol use, unspecified, uncomplicated; I44.0 Atrioventricular block, first degree; Z79.899 Other long term (current) drug therapy; E86.0 Dehydration; Z79.82 Long term (current) use of aspirin; Z95.810 Presence of automatic (implantable) cardiac defibrillator
CPT/HCPCS: 80048; 80053; 80061; 83735; 84443; 84484; 85025; 85027; 93005; 93289; 93308; 93321; 93325; 96365; 96366; 96375; 99291; 99406; J0282

== ENCOUNTER 2025-01-17 12:42 | Emergency (ER) | payer OTHER, SELFPAY ==
[2025-01-17] VITALS (7 sets, daily range): BP systolic 122–139; BP diastolic 87–96; BMI 23.3
--- NOTE | 2025-01-17 13:07 | ED.GENMED ---
History of Present Illness
General
Chief Complaint: Cardiac Symptoms
Source: patient and records
Exam Limitations: none
Time Seen by Provider: 01/17/25 12:55
Nursing documentation reviewed up to this point in time: agreed with
History of Present Illness
History of Present Illness:
Note:
CHIEF COMPLAINT(S)
Chest pain and shortness of breath
HISTORY OF PRESENT ILLNESS
The patient is a 64-year-old male with a recent history of hospitalization for cardiac issues. He presents with persistent chest pain and shortness of breath, which have not resolved since his discharge from the hospital. The patient mentions that
he was treated with amiodarone during his last hospital visit. Despite the treatment, he continues to experience symptoms. The patient recalls discussions about his cardiac condition, including a history related to an electrical problem, which was
not addressed by a catheterization. As a result, the current plan involves potential ablation therapy. He notes that he is currently in a paced sinus rhythm with no pacing of the ventricles, and there is intent to monitor his cardiac activity
further.
ADDITIONAL HISTORY OBTAINED FROM SOURCES OTHER THAN THE PATIENT
According to the patient�s nurse, who discussed with the squadron worker, Dr. Coronado, the team considers the patient a candidate for ablation. The nurse also communicated concerns about persistent symptoms preventing discharge.
PHYSICAL EXAM
General: Alert, no acute distress.
Skin: Warm, dry.
Head: Normocephalic, atraumatic.
Neck: Supple, trachea midline.
Eyes, Ears, Nose, Mouth, and Throat: Oral mucosa moist.
Cardiovascular: Normal peripheral perfusion, no edema.
Respiratory: Respirations are non-labored.
Gastrointestinal: Abdomen nondistended.
Back: Normal range of motion, normal alignment.
Musculoskeletal: Normal range of motion, normal strength.
Neurological: Alert and oriented to person, place, time, and situation, no focal neurological deficit observed.
Psychiatric: Cooperative, appropriate mood and affect.
PROBLEM LIST
Acute Problems:
1. Persistent chest pain
2. Shortness of breath
3. Ventricular tachycardia (suspected electrical cardiac issue)
4. Anxiety (per nurse observation)
PLAN
1. Monitor cardiac activity, specifically the effect of paced sinus rhythm without ventricular pacing.
2. Evaluate electrolyte levels in the patients laboratory results.
3. Discuss further with cardiology team the need for ablation therapy as indicated by Dr. Coronado.
4. Consider anxiety management strategies if relevant.
DIFFERENTIAL DIAGNOSIS
The Differential Diagnosis includes, in no particular order and is not limited to:
1. Myocardial ischemia
2. Heart failure
3. Pulmonary embolism
4. Anxiety-related symptoms
5. Ventricular arrhythmias
6. Acute coronary syndrome
7. Pericarditis
8. Aortic dissection
9. Chronic obstructive pulmonary disease exacerbation
10. Angina pectoris
CARE-UPDATE
01/17/25 - 20:17
Card[address] evaluation by Dr. Cervantes recommends discontinuation of nadalol and initiation of metoprolol succinate. Follow-up scheduled with Dr. Rueda in two days. [employer] ICD pacemaker interrogation shows no dysrhythmia.
EKG
My independent EKG interpretation is:
- Rhythm: Atrial-based rhythm with frequent PVCs
- [place]: Normal
Disposition:
SUMMARY OF ENCOUNTER
The patient, a 64-year-old male with a recent history of hospitalization for cardiac issues, presented with persistent chest pain and shortness of breath. During the visit, the possible connection between the patients palpitations and the use of
nadolol was considered. Management included discontinuing nadolol and initiating metoprolol succinate to better manage symptoms.
ASSESSMENT
The patients palpitations and persistent symptoms are likely exacerbated by nadolol, necessitating a medication change for better symptom control.
PLAN
Discontinue nadolol and begin metoprolol succinate therapy. Cardiology follow-up is scheduled in two days for further evaluation and to assess response to medication changes.
INDEPENDENT REVIEW OF LABS AND INTERPRETATION OF TESTS
My independent EKG interpretation is atrial-based rhythm with frequent premature ventricular contractions (PVCs).
FOLLOW-UP INSTRUCTIONS
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
MEDICATION RECONCILIATION
1. Discontinued nadolol.
2. Initiated metoprolol succinate as prescribed by cardiology.
MEDICAL DECISION MAKING
- Complexity of Data Reviewed: Chronic conditions affecting care include recent cardiac issues, palpitations, and possible adverse effects from nadolol. Differential diagnosis includes myocardial ischemia, heart failure, pulmonary embolism,
anxiety-related symptoms, ventricular arrhythmias, acute coronary syndrome, pericarditis, aortic dissection, chronic obstructive pulmonary disease exacerbation, and angina pectoris.
- Data:
Category 1
My independent interpretation of the EKG shows atrial-based rhythm with frequent PVCs.
Category 3
Consulted with the cardiology team, including discussions with Dr. Coronado, regarding the patients current medication regimen and potential need for ablation therapy.
- Risk:
Prescription medication was prescribed: the discontinuation of nadolol and initiation of metoprolol succinate were needed to manage symptoms and potentially reduce risk.
DIAGNOSIS
1. Palpitations (ICD-10: R00.2)
2. Adverse effect of nadolol (ICD-10: T46.522A)
Phy Exam
Physical Exam
Physical Exam:
.
Course
Orders/Labs/Results
Orders:
Orders
01/17/25 12:45
Electrocardiogram (*1) Urgent
Reason for Study: Tachycardia
EKG- Treatment ONCE
01/17/25 13:07
Interrogate Pacemaker- Treatment ONCE
Comment: medtronic
01/17/25 13:18
IV Insert/Care/Rem.- Treatment PRN
01/17/25 13:31
CR Chest Portable - 1 View Urgent
Comment:
Reason For Exam: short of breath
Reason Study Needs to be Portable: Patient Unstable
01/17/25 13:41
Complete Blood Count/With Diff Urgent
Comprehensive Metabolic Panel Urgent
Magnesium Urgent
Troponin I Urgent
Abnormal Lab Results
01/17/25
13:41
Absolute Monos (auto) 0.7 H 10^3/uL
(0.1-0.6)
Lymphocytes % 19.7 L %
(20.5-51.1)
Monocytes % 9.7 H %
(1.7-9.3)
BUN 25 H mg/dl
(9-20)
Total Protein 6.2 L g/dl
(6.3-8.2)
01/17/25 13:41
01/17/25 13:41
Vital Signs
Initial and Last Documented VS:
Initial Vital Signs
Temp Pulse Resp BP Pulse Ox
98 F 95 16 122/96 95
01/17/25 12:45 01/17/25 12:45 01/17/25 12:45 01/17/25 12:45 01/17/25 12:45
Last Documented Vital Signs
Temp Pulse Resp BP Pulse Ox
98.6 F 86 18 132/87 99
01/17/25 16:12 01/17/25 16:15 01/17/25 16:15 01/17/25 16:12 01/17/25 16:15
*Pulse Oximetry
SaO2: 95
Oxygen Mode of Delivery: Room air
Patient hypoxic: no
*Critical Care Note
Total Time (30-74mins, 75-104mins- exclusive of procedures): Not Applicable
ED Attending Note
-
Portions of this chart may have been created with voice recognition software.� Occasional wrong word or��sound alike� substitutions may have occurred due to the inherent limitations of voice recognition software.
Discharge Plan
Departure
Patient Disposition: Home (Routine Discharge)
Date of Disposition: 01/17/25
Time of Disposition: 16:00
Patient with high blood pressure during this ER visit?: Yes
Condition: Good
Discharge Problem:
Heart palpitations
Instructions: Overview of heart arrhythmias, BLOOD PRESSURE
Prescriptions:
New
metoprolol succinate 25 mg tablet extended release 24 hr
25 mg PO BID Qty: 60 0RF
Discontinued
nadolol 20 mg Tablet
20 mg PO DAILY Qty: 30 0RF
No Action
aspirin 81 mg tablet,chewable
81 mg PO DAILY
rosuvastatin 20 mg tablet
20 mg PO QPM
amiodarone [Pacerone] 200 mg Tablet
400 mg PO BID Qty: 74 0RF
Rx Instructions:
Take 400 mg by mouth twice daily for 7 days. After that take 400 mg once daily.
Referrals:
Chano Hassan MD [Active, Cardiology] - 01/19/25 10:40 am
Eveline Sapp CRNP [Family Provider, Internal Medicine]
Activity Restrictions/Additional Instructions:
Stop nadolol. Start metoprolol succinate 25 mg twice daily.
Interventions
Interventions:
*Risk Screen - Suicide Last Done: 01/17/25 12:46
*General Assessment Last Done: 01/17/25 13:11
*Neglect/Abuse Screening Last Done: 01/17/25 12:46
*ED- Fall Risk Assessment Last Done: 01/17/25 13:11
*ED COVID-19 Vaccine History Last Done: 01/17/25 13:11
*ED Influenza Vaccine History Last Done: 01/17/25 13:11
*Nursing Disposition Last Done: 01/17/25 16:21
ED- Pulmonary Assessment Last Done: 01/17/25 13:11
ED- Cardiac Assessment Last Done: 01/17/25 13:11
Discharge Date and Time
Discharge Date/Time: 01/17/25 16:23
Print Language: PORTUGUESE
[2025-01-17 13:51] LABS: Hematocrit 43.4 % (39.0-52.0); Hemoglobin 14.6 g/dL (13.0-18.0); Mean Corp Hgb Conc. 33.6 g/dL (33.0-37.0); Mean Corpuscular Volume 88.8 fL (80.0-94.0); Nucleated Red Blood Cells % 0 % (-); Platelet Count 272 10^3/uL (130-400); Red Cell Dist. Width 12.3 % (11.5-14.5)
[2025-01-17 14:05] LABS: ALT (SGPT) 46 U/L (0-50); AST (SGOT) 26 U/L (17-59); Albumin 4.1 g/dl (3.5-5.0); Alkaline Phosphatase 79 U/L (38-126); Blood Urea Nitrogen 25 mg/dl (9-20); Calcium 9.1 mg/dl (8.4-10.2); Carbon Dioxide 27 mmol/L (22-30); Chloride 104 mmol/L (98-107); Estimated Creatinine Clearance 84 ml/min; Glucose 99 mg/dl (70-99); Magnesium 2.0 mg/dl (1.6-2.3); Potassium 4.6 mmol/L (3.5-5.1); Sodium 137 mmol/L (135-145); Total Protein 6.2 g/dl (6.3-8.2); eGFR > 60.00
[2025-01-17 14:16] LABS: Troponin I < 0.012 ng/ml
--- NOTE | 2025-01-17 15:09 | CON.CAR ---
Addendum entered and electronically signed by Thai Cervantes MD 01/17/25 17:16:
I saw and evaluated the patient, and I provided the substantive portion of the medical decision making.
I reviewed and agree with the note by Ms Parker and it accurately reflects our care.
I personally performed the medical decision making of the this encounter and my assessment and plan is below:
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
- no clear evidence of VT
- will switch nadolol to metop succinate 25 mg bid
He has f/u with Dr Hassan in 2 days.
Original Note:
Consultation
Consultation Request
Date/Time Consultation Requested: 01/17/2025 14:45
Date/Time Consultation Performed: 01/17/2025 15:10
Requesting Provider: Dr. Ochoa
Performing Provider: KAYLAH Maldonado for Dr. Cervantes
Reason for Consultation: Palpitations with lightheadedness
Medical History
-
Chief Complaint: Palpitations, lightheadedness
History of Present Illness:
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
reminiscent of VT. He saw his PCP today. He was referred to the ER. He has been feeling 'weird and off' since last night. He was afraid to drive to his PCP today so he has his son drive. He is not having any chest pain. He is not short of breath.
Past Medical History
Past Medical History: Arrhythmias (VT s/p ICD), CAD, HTN and Hypercholesterolemia
Past Surgical History: Orthopedic and Tonsilectomy
Social History
Tobacco: Former Smoker
Alcohol: Occasional
Personal:
Living: With Family
Employment: Employed ([email or web address])
Family History
Family History: Reviewed & Not Pertinent
Allergies / Home Medications
Allergy/AdvReac Type Severity Reaction Status Date / Time
No Known Allergies Allergy Verified 12/20/24 11:51
�Medication �Instructions �Recorded �Confirmed �Type
aspirin 81 mg chewable tablet 81 mg PO DAILY Blood Clot 12/20/24 01/17/25 History
Prevention/Tx
rosuvastatin 20 mg tablet 20 mg PO QPM High Cholesterol 12/20/24 01/17/25 History
amiodarone 200 mg tablet (Pacerone) 400 mg (2 x 200 mg) PO BID #74 tabs 01/16/25 01/17/25 Rx
nadolol 20 mg tablet 20 mg PO DAILY #30 tabs 01/16/25 01/17/25 Rx
Review of Systems
-
History Source: Patient
All other systems: Negative unless noted
Constitutional: Fatigue
EENT: No Symptoms
Respiratory: No Symptoms
Cardiac: Palpitations
Abdomen/GI: No Symptoms
: No Symptoms
Musculoskeletal: No Symptoms
Skin: No Symptoms
Neurological: Other (Lightheadedness)
Endocrine: No Symptoms
Hematologic/Lymphatic: No Symptoms
Physical Exam
Vital Signs
Temp Pulse Resp BP Pulse Ox
98.6 F 85 17 138/87 97
01/17/25 13:11 01/17/25 14:15 01/17/25 14:15 01/17/25 14:00 01/17/25 14:15
Lab Results
01/17/25 13:41
01/17/25 13:41
Troponin I < 0.012 ng/ml 01/17/25 13:41
Physical Exam
General: Well Developed, Well Nourished, No Apparent Distress and Comfortable
HEENT: Normocephalic, Anicteric and Moist Mucous Membranes
Respiratory: Clear and Non Labored Respirations
Cardiac: S1/S2 and Regular Rhythm
Breast: Deferred by me
GI: Soft, Non Tender, Non Distended and Normal Bowel Sounds
Rectal: Deferred by Provider
Genito-urinary: No Costovertebral Tender
Musculoskeletal: No Clubbing, No Cyanosis and No Edema
Skin: Warm and Dry
Neuro: AO x 3
Hematologic/Lymphatic: No Lymphadenopathy
Psych: Calm
Impression / Plan
-
I/P: 64M with syncope and presyncope, polymorphic VT s/p DC ICD (12/23/2024) on amiodarone, nonobstructive CAD, HTN, and HLD
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
Lightheadedness with associated palpitations
- No acute findings on device interrogation
- Perhaps experiencing side effects of nadolol, stop and start metoprolol succinate 25 mg twice daily
PMVT
- Continue amiodarone at current dosing (400 mg BID through 01/23/2025 then 400 mg daily for at least 6 months)
- Pacing base rate 85 bpm
- MRI without abnormal enhancement
- No obstructive coronary artery disease
- PVC burden on 2d 3h monitor before Amio: 0.15%. Multiple runs of PMVT
- Outpt monitor did show more than 1 PVC can initiate the rapid polymorphic VT but there was one predominant PVC morphology => potential target for future ablation
Nonobstructive CAD, RCA 40%, chest pain-free
Hypertension, above goal here but he appears anxious
Hypercholesterolemia, on rosuvastatin 20 mg
Data Reviewed
-
EKG: Report Reviewed by me
Radiology: Report Reviewed by me
Medical Tests (Nuc Med, Echo etc): Report Reviewed by me
Labs: Labs Reviewed by me
Old Records: Reviewed
== END 2025-01-17 16:23 | disposition home or self-care (01) ==
LOC: EMR 12:42
PROVIDERS: EMERGENCY PHYSICIAN Emergency Medicine; FAMILY PHYSICIAN Nurse Practitioner Adult Health
DX: R00.2 Palpitations (principal); R07.89 Other chest pain; R06.02 Shortness of breath; E78.00 Pure hypercholesterolemia, unspecified; I10 Essential (primary) hypertension; I25.10 Atherosclerotic heart disease of native coronary artery without angina pectoris; Z95.810 Presence of automatic (implantable) cardiac defibrillator; Z87.891 Personal history of nicotine dependence; Z79.899 Other long term (current) drug therapy
CPT/HCPCS: 99285; 71045; 80053; 83735; 84484; 85025; 93005

== ENCOUNTER → 2025-01-24 07:41 | Outpatient (REF) | payer OTHER, SELFPAY | LOC: RSP 07:41 | PROVIDERS: ATTENDING PHYSICIAN Nurse Practitioner; FAMILY PHYSICIAN Nurse Practitioner Adult Health | DX: Z79.899 Other long term (current) drug therapy (principal); Z95.810 Presence of automatic (implantable) cardiac defibrillator | CPT/HCPCS: 88738; 94010; 94727; 94729 ==